=== PATIENT | female | born 1945 | race Caucasian/White ===

== ENCOUNTER 2017-01-12 22:58 | Emergency (ER) | payer MEDICARE ==
--- NOTE | 2017-01-12 23:39 | ED Physician Chart ---
Chief Complaint/HPI - Patient Information Date Seen:: 01/12/17 Time Seen:: 23:10 Chief Complaint:: CONFUSION AND COMBATIVE History of Present Illness:: THIS IS A 71 YO FEMALE WHO WAS SENT FROM THE RETIREMENT FOR EVALUATION AND TREATMENT FOR HER MENTAL ISSUES AND BEING UNCOOPERATIVE. THIS IS A NO CODE WITH DEMENTIA, HTN, THYROID DISEASE, ETOH ABUSE, DEPRESSION. SHE HAS JUST FINISHED TREATMENT OF A URINARY TRACT INFECTION. Allergies:: Allergies Allergy/AdvReac Type Severity Reaction Status Date / Time codeine Allergy Verified 01/12/17 23:21 Vitals:: Vital Signs - 8 hr 01/12/17 23:00 Temp 97.9 F HR 73 RR 18 BP 147/73 O2 Sat % 93 Historian:: EMS, Medical Records Review:: Nurse's Note Reviewed, Old Chart Reviewed, Transfer documents Reviewed Review of Systems - Review of Systems General/Constitutional: No fever, No chills, No weight loss, No weakness, No diaphoresis, No edema, No loss of appetite, Other (THIS PATIENT IS UNABLE TO GIVE A REVIEW OF SYSTEMS.) Skin: No skin lesions, No rash, No bruising Head: No headache, No light-headedness Eyes: No loss of vision, No pain, No diplopia ENT: No earache, No nasal drainage, No sore throat, No tinnitus Neck: No neck pain, No swelling, No thyromegaly, No stiffness, No mass noted Cardio Vascular: No chest pain, No palpitations, No PND, No orthopnea, No edema Pulmonary: No SOB, No cough, No sputum, No wheezing GI: No nausea, No vomiting, No diarrhea, No pain, No melena, No hematochezia, No constipation, No hematemesis G/U: No dysuria, No frequency, No hematuria Musculoskeletal: No bone or joint pain, No back pain, No muscle pain Endocrine: No polyuria, No polydipsia Psychiatric: Prior psych history, No depression, No anxiety, No suicidal ideation, Homicidal ideation Hematopoietic: No bruising, No lymphadenopathy Allergic/Immuno: No urticaria, No angioedema Neurological: No syncope, No focal symptoms, No weakness, No paresthesia, No headache, No seizure, No dizziness, No confusion, No vertigo Past Medical History - Past Medical History Past Medical History: HTN, Dementia Family History: None Social History: Non Smoker, No Alcohol, No Drug Use Surgical History: Cholecystectomy, Hysterectomy Psychiatricy History: Depression, Schizophrenia, Dementia Medication: Reviewed Family Medical History - Family Member Mother History Unknown: Yes Physical Exam - Physical Examination General/Constitutional: Awake, Well-developed, well-nourished, Alert, No distress, GCS 15, Non-toxic appearing, Ambulatory Other Gen/Cons comments:: HOSTILE BEHAVIOR Head: Atraumatic Eyes: Lids, conjuctiva normal, PERRL, EOMI Skin: Nl inspection, No rash, No skin lesions, No ecchymosis, Well hydrated, No lymphadenopathy ENMT: External ears, nose nl, Nasal exam nl, Lips, teeth, gums nl Neck: Nontender, Full ROM w/o pain, No JVD, No nuchal rigidity, No bruit, No mass, No stridor Respiratory: Nl effort/Exclusion, Clear to Auscultation, No Wheeze/Rhonchi/Rales Cardio Vascular: RRR, No murmur, gallop, rubs, NL S1 S2 GI: No tenderness/rebounding/guarding, No organomegaly, No hernia, Normal BS's, Nondistended, No mass/bruits, No McBurney tenderness : No CVA tenderness Extremities: No tenderness or effusion, Full ROM, normal strength in all extremities, No edema, Normal digits & nails Neuro/Psych: Alert/oriented, DTR's symmetric, Normal sensory exam, Normal motor strength, Judgement/insight normal, Mood normal, Normal gait, No focal deficits Misc: normal gait, Normal back, No paraspinal tenderness Labs/Radiology/EKG Results - Lab Results Results: Abnormal Lab Results 01/12/17 01/12/17 01/12/17 23:20 23:20 23:20 WBC 12.4 H RBC 4.38 Hgb 13.4 Hct 39.7 MCV 90.7 MCH 30.6 MCHC Differential 33.7 RDW 12.5 Plt Count 344 MPV 8.8 Band Neutrophils % 2 Neutrophils (Manual) 52 Lymphocytes 38 Monocytes 2 Eosinophils 6 H Platelet Estimate ADEQUATE Sodium 134 L Potassium 3.6 Chloride 103 Carbon Dioxide 27.6 Anion Gap 7.0 BUN 17 Creatinine 0.9 Est GFR ( Amer) > 60.0 Est GFR (Non-Af Amer) > 60.0 BUN/Creatinine Ratio 18.9 Glucose 73 Calcium 10.1 Total Bilirubin 0.4 AST 13 ALT 6 L Alkaline Phosphatase 67 Troponin I 0.01 Total Protein 6.9 Albumin 4.0 Globulin 2.9 Albumin/Globulin Ratio 1.4 TSH Urine Color Urine Clarity Urine pH Ur Specific [place] Urine Protein Urine Glucose (UA) Urine Ketones Urine Blood Urine Nitrate Urine Bilirubin Urine Urobilinogen Ur Leukocyte Esterase 01/12/17 01/13/17 23:20 00:20 WBC RBC Hgb Hct MCV MCH MCHC Differential RDW Plt Count MPV Band Neutrophils % Neutrophils (Manual) Lymphocytes Monocytes Eosinophils Platelet Estimate Sodium Potassium Chloride Carbon Dioxide Anion Gap BUN Creatinine Est GFR ( Amer) Est GFR (Non-Af Amer) BUN/Creatinine Ratio Glucose Calcium Total Bilirubin AST ALT Alkaline Phosphatase Troponin I Total Protein Albumin Globulin Albumin/Globulin Ratio TSH 2.87 Urine Color YELLOW Urine Clarity SLIGHT CLOUDY Urine pH 6.0 Ur Specific [place] 1.010 Urine Protein NEGATIVE Urine Glucose (UA) NEGATIVE Urine Ketones NEGATIVE Urine Blood TRACE Urine Nitrate NEGATIVE Urine Bilirubin NEGATIVE Urine Urobilinogen 0.2 Ur Leukocyte Esterase LARGE H - EKG Interpretations EKG Time:: 23:25 Rate & Rhythm: RATE=81, SINUS [place]: RIGHT Assessment - Assessment General Assessment: URINARY TRACT INFECTION ANXIETY REACTION ED Septic Shock - . Is Septic Shock (SBP<90, OR Lactate>4 mmol\L) present?: No - <6hrs of presentation: Vital Signs: Vital Signs - 8 hr 01/12/17 23:00 Temp 97.9 F HR 73 RR 18 BP 147/73 O2 Sat % 93 Reassessment (Disposition) - Reassessment Reassessment Condition:: Unchanged - Diagnosis Diagnosis:: URINARY TRACT INFECTION ANXIETY REACTION - Aftercare/Follow up Instructions Aftercare/Follow-Up Instructions:: Counseled pt regarding lab results/diagnosis & need follow up, Refer to Discharge Instructions, Counseled pt & family regarding lab results/diagnosis & need follow up - Patient Disposition Discharge/Transfer:: Skilled Nursing Care - SNF ED Discharge Plan - Patient Disposition Admit/Discharge/Transfer: Discharge/Transfered to SNF Condition at Disposition: Unchanged
[2017-01-12 23:42] LABS: HEMATOCRIT 39.7 % (35.0-45.0); HEMOGLOBIN 13.4 gm/dL (11.7-16.1); MEAN CELL VOLUME 90.7 fl (81-100); MEAN CORPUSCULAR HEMOGLOBIN 30.6 pg (27.0-31.0); MEAN CORPUSCULAR HGB CONC 33.7 pg (28.0-36.0); MEAN PLATELET VOLUME 8.8 fl; PLATELET COUNT 344 Th/cmm (150-400); RED BLOOD COUNT 4.38 Mil/cmm (3.80-5.20); RED CELL DISTRIBUTION WIDTH 12.5 % (11.5-20.0)
[2017-01-12 23:46] LABS: WHITE BLOOD COUNT 12.4 Th/cmm (4.8-10.8)
[2017-01-12 23:51] LABS: ALB/GLOB RATIO 1.4 (1.0-1.8); ALKALINE PHOSPHATASE 67 U/L (34-104); BILIRUBIN,TOTAL 0.4 mg/dL (0.3-1.0); BUN - UREA NITROGEN 17 mg/dL (7-25); BUN/CREATININE RATIO 18.9; CALCIUM SERUM 10.1 mg/dL (8.6-10.3); CARBON DIOXIDE 27.6 mEq/L (21.0-31.0); CHLORIDE 103 mEq/L (98-107); CREATININE - SERUM 0.9 mg/dL (0.6-1.2); GLUCOSE 73 mg/dL (70-105); POTASSIUM SERUM 3.6 mEq/L (3.5-5.1); SGOT 13 U/L (13-39); SGPT/ALT 6 U/L (7-52); SODIUM SERUM 134 mEq/L (136-145)
[2017-01-13 00:07] LABS: BAND NEUTROPHILE 2 % (0-10); EOSINOPHIL 6 % (0-5); NEUTROPHILS 52 % (40-80); PLATELET ESTIMATE ADEQUATE (NORMAL); TOTAL CELLS COUNTED 100
[2017-01-13 00:48] LABS: URINE BILIRUBIN NEGATIVE (NEGATIVE); URINE BLOOD TRACE (NEGATIVE); URINE GLUCOSE (UA) NEGATIVE (NEGATIVE); URINE KETONE NEGATIVE (NEGATIVE); URINE PROTEIN NEGATIVE (NEGATIVE); URINE UROBILINOGEN 0.2 E.U./dL (0.2 - 1.0)
[2017-01-13 00:51] LABS: URINE COLOR YELLOW
[2017-01-13 01:06] LABS: URINE BACTERIA FEW /hpf (NONE SEEN); URINE EPITHELIAL CELLS FEW /lpf (FEW); URINE RBC 0-2 /hpf (0-5)
== END 2017-01-13 02:15 ==
LOC: ER 22:58
DX: F41.9 Anxiety disorder, unspecified (principal); N39.0 Urinary tract infection, site not specified; I10 Essential (primary) hypertension; F20.9 Schizophrenia, unspecified; Z88.5 Allergy status to narcotic agent; Z90.49 Acquired absence of other specified parts of digestive tract; Z90.710 Acquired absence of both cervix and uterus
CPT/HCPCS: 99285; 96372; 93005; 84484; 36415; 84443; 86592; 85007; 85027; 81001; 80053; J0696

== ENCOUNTER 2017-03-27 14:12 | Inpatient (IN) | payer MEDICARE, MEDICAID ==
--- NOTE | 2017-03-27 15:06 | ED Physician Chart ---
ED Chief Complaint/HPI - Patient Information Date Seen:: 03/27/17 Time Seen:: 15:01 Chief Complaint:: left hip pain after fall History of Present Illness:: 71 yo female developed left hip pain after an unwitnessed, mechanical lead, ground level fall a day ago. The patient denies any loss of consciousness. The pain became worse when standing and relieved when lying down. The patient has dementia and is a SNF resident. She was brought to ER for further evaluation. Allergies:: Allergies Allergy/AdvReac Type Severity Reaction Status Date / Time codeine Allergy Verified 01/12/17 23:21 Vitals:: Vital Signs - 8 hr 03/27/17 14:16 Temp 97.9 F HR 70 RR 15 BP 127/58 O2 Sat % 93 ED Review of Systems - Review of Systems General/Constitutional: No fever, No chills Skin: No skin lesions Head: No headache Eyes: No loss of vision Neck: No neck pain Cardio Vascular: No chest pain Pulmonary: No SOB GI: No nausea, No vomiting G/U: No dysuria Musculoskeletal: Other (left hip pain) ED Past Medical History - Past Medical History Past Medical History: HTN, Thyroid disorder (Hypothyroidism), Dementia ( Alzheimer's disease) Social History: Smoker, No Alcohol, No Drug Use Surgical History: Cholecystectomy, Hysterectomy Family Medical History - Family Member Mother History Unknown: Yes Ethnicity: Non- Living Status: ED Physical Exam - Physical Examination Head: Atraumatic ENMT: External ears, nose nl Neck: Full ROM w/o pain Respiratory: Clear to Auscultation, No Wheeze/Rhonchi/Rales Cardio Vascular: RRR, No murmur, gallop, rubs, NL S1 S2 GI: No tenderness/rebounding/guarding, Nondistended : No CVA tenderness Other Extremities comments:: Patient was able to move left hip joint without significant pain, there was limited lateral rotation. Other Neuro/Psych comments:: oriented to self and place ED Labs/Radiology/EKG Results - Lab Results Results: UA showed evidence of UTI - Radiology Results Results: Left hip X ray: no fracture or dislocation was noticed. ED Assessment - Assessment General Assessment: 71 yo female has dementia, left hip pain and UTI. Critical Care Time: 45 min Excludes all billable procedures: Yes This condition life threatening/high prob of deterioration: No Assessment/Comments:: The patient will be admitted for management of UTI and further evaluation of the left hip pain. ED Septic Shock - . Is Septic Shock (SBP<90, OR Lactate>4 mmol\L) present?: No - <6hrs of presentation: Vital Signs: Vital Signs - 8 hr 03/27/17 14:16 Temp 97.9 F HR 70 RR 15 BP 127/58 O2 Sat % 93 ED Reassessment (Disposition) - Reassessment Reassessment Condition:: Improved - Patient Disposition Discharge/Transfer:: Acute Care w/in this [facility] Admitted to:: Med/Surg Admitting Medical Physician:: Flako Singh ED Discharge Plan - Patient Disposition Admit/Discharge/Transfer: Acute Care w/in this hosp
[2017-03-27 15:39] LABS: % BASOPHILS 4.1 % (0.0-2.0); % EOSINOPHILS 1.5 % (0.0-5.0); % LYMPHOCYTES 25.9 % (20.0-50.0); % NEUTROPHILS 61.5 % (40.0-80.0); BASOPHILE ABSOLUTE 0.6 Th/cumm (0-0.2); EOSINOPHILE ABSOLUTE 0.2 Th/cmm (0.1-0.4); HEMATOCRIT 41.4 % (41.0-60); HEMOGLOBIN 14.1 gm/dL (12-16); LYMPHOCYTE ABSOLUTE 3.7 Th/cmm (1.5-3.0); MEAN CORPUSCULAR HEMOGLOBIN 30.7 pg (27.0-31.0); MEAN CORPUSCULAR HGB CONC 34.1 pg (28.0-36.0); MEAN PLATELET VOLUME 8.3 fl; NEUTROPHILE ABSOLUTE 8.7 Th/cmm (1.8-8.0); PLATELET COUNT 357 Th/cmm (150-400); RED CELL DISTRIBUTION WIDTH 12.5 % (11.5-20.0)
[2017-03-27 15:47] LABS: WHITE BLOOD COUNT 14.2 Th/cmm (4.8-10.8)
[2017-03-27 15:55] LABS: ALB/GLOB RATIO 1.4 (1.0-1.8); ALBUMIN 3.7 gm/dL (3.7-5.3); ALKALINE PHOSPHATASE 69 U/L (34-104); ANION GAP 8.5 (7.0-16.0); BILIRUBIN,TOTAL 0.3 mg/dL (0.3-1.0); BUN - UREA NITROGEN 22 mg/dL (7-25); CALCIUM SERUM 9.2 mg/dL (8.6-10.3); CARBON DIOXIDE 30.2 mEq/L (21.0-31.0); CHLORIDE 100 mEq/L (98-107); GFR AFRICAN-AMERICAN > 60.0 ml/min (>90); GFR NON AFRICAN-AMERICAN 58.3 ml/min; GLUCOSE 125 mg/dL (70-105); POTASSIUM SERUM 3.7 mEq/L (3.5-5.1); SGOT 14 U/L (13-39); SGPT/ALT 10 U/L (7-52); SODIUM SERUM 135 mEq/L (136-145); TOTAL PROTEIN,SERUM 6.4 gm/dL (6.0-8.3)
[2017-03-27 16:09] LABS: URINE MICROSCOPIC INDICATED? YES; URINE SOURCE RANDOM
[2017-03-27 16:15] LABS: URINE BILIRUBIN NEGATIVE (NEGATIVE); URINE BLOOD TRACE (NEGATIVE); URINE CLARITY CLOUDY (CLEAR); URINE COLOR STRAW; URINE GLUCOSE (UA) NEGATIVE (NEGATIVE); URINE KETONE NEGATIVE (NEGATIVE); URINE LEUKOCYTE ESTERASE MODERATE (NEGATIVE); URINE NITRATE NEGATIVE (NEGATIVE); URINE PROTEIN NEGATIVE (NEGATIVE); URINE UROBILINOGEN 0.2 E.U./dL (0.2 - 1.0)
[2017-03-27 16:28] LABS: URINE BACTERIA MANY /hpf (NONE SEEN); URINE EPITHELIAL CELLS FEW /lpf (FEW); URINE WBC >100 /hpf (0-5)
[2017-03-27] MEDS ORDERED: Morphine Sulfate 2 mg/mL 1mL Syr IVP PRN (17:15)
[2017-03-27] MEDS ORDERED: Morphine Sulfate 2 mg/mL 1mL Syr IM PRN (17:16)
[2017-03-27] MEDS ORDERED: Pneumococcal Vaccine 0.5 mL Vial IM ONE (17:51)
[2017-03-27] MEDS ORDERED: Magnesium Hydroxide (MOM) 30 mL UDC PO PRN (19:38)
[2017-03-27] MEDS ORDERED: Hydrocodone/APAP 5mg/325mg Tab PO PRN (19:38)
[2017-03-27] MEDS ORDERED: Fleet Enema 135 mL RC PRN (19:38)
--- NOTE | 2017-03-27 22:42 | History and Physical ---
History of Present Illness - HPI Chief Complaint: left hip pain HPI: 71 year old female who is a longterm resident admitted for left hip pain secondary to unwitness fall. Per patient pain is worse when standing. Vital Signs: Last Vital Signs Temp 98.4 F 03/27/17 21:00 Pulse 81 03/27/17 21:00 Resp 18 03/27/17 21:00 BP 128/61 03/27/17 21:00 Pulse Ox 96 03/27/17 21:00 Past Medical History Cardiovascular: Report: HTN Pulmonary: Report: No Pertinent Hx CHRONOMETER REPAIRER: Report: No Pertinent Hx GI: Report: No Pertinent Hx Psych: Report: No Pertinent Hx Dermatology: Report: Other (hypothyroid, dementia alzheimer) Family Medical History - Family Member Mother History Unknown: Yes (noncontributory) Ethnicity: Non- Living Status: Social History Smoke: No Alcohol: None Drugs: None Lives: Intermediate - Medications Home Medications: Home Medication Medication Instructions Recorded Type Acetaminophen [Tylenol] 325 mg PO Q4HR PRN 01/12/17 History Bisacodyl [Dulcolax 10 Mg Supp] 10 mg RC DAILY PRN 01/12/17 History Hydrocodone/Acetaminophen [[place] 1 tab PO Q6HR PRN 01/12/17 History 325 mg-5 mg*] Magnesium Hydroxide [Milk of 30 ml PO DAILY PRN 01/12/17 History Magnesia] Na Phos, Dibasic/Na Phos, Mo 1 dose RC PRN PRN 01/12/17 History [Fleet Enema] Trazodone HCl 150 mg PO HS 01/12/17 History Venlafaxine HCl ER [Effexor XR] 225 mg PO DAILY 01/12/17 History - Allergies Allergies/Adverse Reactions: Allergies Allergy/AdvReac Type Severity Reaction Status Date / Time codeine Allergy Verified 01/12/17 23:21 Review of Systems - Review of Systems Constitutional: Report: Weakness Eyes: Report: No Significant ENT: Report: No Significant Respiratory: Report: No Significant Cardiovascular: Report: No Significant Gastrointestinal: Report: No Significant Genitourinary: Report: No Significant Musculoskeletal: Report: Other (left hip pain) Neurological: Report: Weakness Physical Exam - Physical Exam HEENT: Report: Ears Nose Throat within normal limits Neck: Report: Within normal limits Cardiovascular Systems: Report: +s1/s2 noted Respiratory: Report: Breath Sounds are within normal limits Abdomen: Report: Non-tender to palpation Back: Report: Inspection of back is within normal limits. Extremities: Report: Non-tender to palpation. Skin: Report: Color of skin is within normal limits - Lab Results All Lab Results last 24 hours: Laboratory Results - last 24 hr 03/27/17 03/27/17 03/27/17 15:32 15:32 15:32 WBC 14.2 H RBC 4.60 Hgb 14.1 Hct 41.4 MCV 90.0 MCH 30.7 MCHC Differential 34.1 RDW 12.5 Plt Count 357 MPV 8.3 Neutrophils % 61.5 Lymphocytes % 25.9 Monocytes % 7.0 Eosinophils % 1.5 Basophils % 4.1 H Sodium 135 L Potassium 3.7 Chloride 100 Carbon Dioxide 30.2 Anion Gap 8.5 BUN 22 Creatinine 1.0 Est GFR ( Amer) > 60.0 Est GFR (Non-Af Amer) 58.3 BUN/Creatinine Ratio 22.0 Glucose 125 H POC Glucose Whole Bld Lactic Acid 1.42 Calcium 9.2 Total Bilirubin 0.3 AST 14 ALT 10 Alkaline Phosphatase 69 Total Protein 6.4 Albumin 3.7 Globulin 2.7 Albumin/Globulin Ratio 1.4 Urine Source Urine Color Urine Clarity Urine pH Ur Specific [place] Urine Protein Urine Glucose (UA) Urine Ketones Urine Blood Urine Nitrate Urine Bilirubin Urine Urobilinogen Ur Leukocyte Esterase Urine RBC Urine WBC Ur Epithelial Cells Urine Bacteria 03/27/17 03/27/17 16:00 16:57 WBC RBC Hgb Hct MCV MCH MCHC Differential RDW Plt Count MPV Neutrophils % Lymphocytes % Monocytes % Eosinophils % Basophils % Sodium Potassium Chloride Carbon Dioxide Anion Gap BUN Creatinine Est GFR ( Amer) Est GFR (Non-Af Amer) BUN/Creatinine Ratio Glucose POC Glucose 156 H Whole Bld Lactic Acid Calcium Total Bilirubin AST ALT Alkaline Phosphatase Total Protein Albumin Globulin Albumin/Globulin Ratio Urine Source RANDOM Urine Color STRAW Urine Clarity CLOUDY H Urine pH 6.0 Ur Specific [place] 1.020 Urine Protein NEGATIVE Urine Glucose (UA) NEGATIVE Urine Ketones NEGATIVE Urine Blood TRACE Urine Nitrate NEGATIVE Urine Bilirubin NEGATIVE Urine Urobilinogen 0.2 Ur Leukocyte Esterase MODERATE H Urine RBC 2-5 Urine WBC >100 H Ur Epithelial Cells FEW Urine Bacteria MANY - Assessment Assessment: left hip pain htn hypothyroid dementia - Plan Plan: pending ct and hip xray result ortho consult pt eval fall precautions
[2017-03-28 05:24] LABS: % EOSINOPHILS 2.5 % (0.0-5.0); % LYMPHOCYTES 39.4 % (20.0-50.0); % MONOCYTES 9.1 % (2.0-10.0); EOSINOPHILE ABSOLUTE 0.3 Th/cmm (0.1-0.4); HEMOGLOBIN 14.8 gm/dL (12-16); LYMPHOCYTE ABSOLUTE 4.3 Th/cmm (1.5-3.0); MEAN CORPUSCULAR HEMOGLOBIN 30.3 pg (27.0-31.0); MEAN CORPUSCULAR HGB CONC 33.7 pg (28.0-36.0); MEAN PLATELET VOLUME 8.8 fl; NEUTROPHILE ABSOLUTE 5.3 Th/cmm (1.8-8.0); PLATELET COUNT 362 Th/cmm (150-400); RED BLOOD COUNT 4.89 Mil/cmm (3.80-5.20); RED CELL DISTRIBUTION WIDTH 12.7 % (11.5-20.0)
[2017-03-28 05:28] LABS: WHITE BLOOD COUNT 10.9 Th/cmm (4.8-10.8)
[2017-03-28 05:48] LABS: ALB/GLOB RATIO 1.4 (1.0-1.8); ALBUMIN 3.9 gm/dL (3.7-5.3); ALKALINE PHOSPHATASE 71 U/L (34-104); ANION GAP 10.5 (7.0-16.0); BILIRUBIN,TOTAL 0.5 mg/dL (0.3-1.0); BUN - UREA NITROGEN 17 mg/dL (7-25); CALCIUM SERUM 9.5 mg/dL (8.6-10.3); CARBON DIOXIDE 28.4 mEq/L (21.0-31.0); CHLORIDE 105 mEq/L (98-107); CREATININE - SERUM 0.9 mg/dL (0.6-1.2); GFR AFRICAN-AMERICAN > 60.0 ml/min (>90); GFR NON AFRICAN-AMERICAN > 60.0 ml/min; GLUCOSE 88 mg/dL (70-105); POTASSIUM SERUM 3.9 mEq/L (3.5-5.1); SGOT 14 U/L (13-39); SGPT/ALT 8 U/L (7-52); SODIUM SERUM 140 mEq/L (136-145); TOTAL PROTEIN,SERUM 6.7 gm/dL (6.0-8.3)
[2017-03-28] MEDS: cefTRIAXone 1 GM in Sodium Chloride 0.9% 50 ML IV SCH (08:59)
--- NOTE | 2017-03-28 09:52 | Diagnostic Imaging Report ---
Pelvis and left hip 2 views Indication: Left hip pain Comparison: none Findings: Mild degenerative changes of the bilateral hip joints are noted. No evidence of an acute fracture or dislocation. There are calcifications seen adjacent to the left femoral head measuring up to 2.6 cm. The SI joints demonstrate mild degenerative changes. Impression: No evidence of an acute fracture or dislocation. Calcification seen adjacent to the left femoral head which may have been due to old trauma. In the setting of trauma, if clinical symptoms persist and there is continued concern for an occult fracture, follow up exams in 5-7 days is suggested.
--- NOTE | 2017-03-28 10:13 | Diagnostic Imaging Report ---
CT left hip without IV contrast HISTORY: Pain, rule out fracture COMPARISON: Pelvis and left hip x-rays the same day Technique: Axial images were obtained from the lower pelvis to the proximal left femur without IV contrast. Reconstructions were made. Total DLP 200, CTD I 7.2 Findings: Diverticulosis is noted. Left adnexal calcifications are noted. Mild degenerative changes of the left hip joint are noted. No evidence of an acute fracture versus dislocation. There is 3 cm calcification seen along the superolateral left femoral head region. This is probably outside of the joint and may have been sequela of old trauma and subsequent calcifications in this region. No focal soft tissue swelling. IMPRESSION: No evidence of acute fracture or dislocation. 3 cm calcification along the superolateral left femoral head region soft tissues. This appears to be located outside the hip joint. Findings may be sequela of a previous old trauma or prior inflammatory etiology. Please correlate clinically.
--- NOTE | 2017-03-28 18:53 | Progress Notes ---
DATE: 03/28/2017 SUBJECTIVE: The patient was seen in the room, lying in the bed. The patient denies any discomfort or pain at this time. The patient is awake, alert and oriented x 2-3 with episodes of confusion, otherwise the patient appears to be comfortable in no acute distress. OBJECTIVE: VITAL SIGNS: Temperature 98.3, heart rate 78, blood pressure 104/68, respiration of 17, 96% on room air. HEENT: Head is atraumatic and normocephalic. Eyes: Bilateral conjunctivae are clear. Bilateral pupils are equally round and reactive. NECK: Supple. No JVD. CARDIOVASCULAR: S1 and S2, without murmur. PULMONARY: Clear to auscultation. GASTROINTESTINAL: Soft and nontender without guarding. Positive bowel sounds. MUSCULOSKELETAL: No clubbing, no cyanosis noted. ASSESSMENT: 1. Status post ground level fall. 2. Left hip pain. 3. Hypertension. 4. Hypothyroidism. 5. Dementia. 6. Urinary tract infection. PLAN: We will start the patient on Rocephin 1 g IV piggyback every 24 hours. We will follow up with the urine culture result, fall precaution will be given to the patient. Treatment plans were discussed with the patient's nurse. Treatment plans were discussed with Dr. Singh. JOB# [id number]
[2017-03-29 05:46] LABS: % BASOPHILS 0.4 % (0.0-2.0); % EOSINOPHILS 3.1 % (0.0-5.0); % LYMPHOCYTES 44.4 % (20.0-50.0); % MONOCYTES 7.5 % (2.0-10.0); % NEUTROPHILS 44.6 % (40.0-80.0); EOSINOPHILE ABSOLUTE 0.3 Th/cmm (0.1-0.4); HEMATOCRIT 40.3 % (41.0-60); HEMOGLOBIN 13.8 gm/dL (12-16); LYMPHOCYTE ABSOLUTE 4.1 Th/cmm (1.5-3.0); MEAN CORPUSCULAR HEMOGLOBIN 30.8 pg (27.0-31.0); MEAN CORPUSCULAR HGB CONC 34.3 pg (28.0-36.0); MEAN PLATELET VOLUME 8.2 fl; MONOCYTE ABSOLUTE 0.7 Th/cmm (0.3-1.0); NEUTROPHILE ABSOLUTE 4.1 Th/cmm (1.8-8.0); PLATELET COUNT 339 Th/cmm (150-400); RED BLOOD COUNT 4.47 Mil/cmm (3.80-5.20); RED CELL DISTRIBUTION WIDTH 12.5 % (11.5-20.0); WHITE BLOOD COUNT 9.2 Th/cmm (4.8-10.8)
[2017-03-29 06:09] LABS: ALB/GLOB RATIO 1.4 (1.0-1.8); ALBUMIN 3.4 gm/dL (3.7-5.3); ALKALINE PHOSPHATASE 62 U/L (34-104); ANION GAP 8.7 (7.0-16.0); BILIRUBIN,TOTAL 0.3 mg/dL (0.3-1.0); BUN - UREA NITROGEN 16 mg/dL (7-25); CALCIUM SERUM 9.1 mg/dL (8.6-10.3); CARBON DIOXIDE 28.3 mEq/L (21.0-31.0); CHLORIDE 104 mEq/L (98-107); CREATININE - SERUM 0.9 mg/dL (0.6-1.2); GFR AFRICAN-AMERICAN > 60.0 ml/min (>90); GFR NON AFRICAN-AMERICAN > 60.0 ml/min; GLUCOSE 91 mg/dL (70-105); SGOT 12 U/L (13-39); SGPT/ALT 8 U/L (7-52); SODIUM SERUM 137 mEq/L (136-145); TOTAL PROTEIN,SERUM 5.9 gm/dL (6.0-8.3)
[2017-03-29] MEDS: cefTRIAXone 1 GM in Sodium Chloride 0.9% 50 ML IV SCH (09:26)
--- NOTE | 2017-03-29 10:31 | General Progress Note ---
Subjective - Review of Systems Events since last encounter: patient awake alert no no acute distress confused denies discomfort Objective - Results Result Diagrams: 03/29/17 05:30 03/29/17 05:30 Recent Labs: Laboratory Last Values WBC 9.2 Th/cmm (4.8-10.8) 03/29/17 05:30 RBC 4.47 Mil/cmm (3.80-5.20) 03/29/17 05:30 Hgb 13.8 gm/dL (12-16) 03/29/17 05:30 Hct 40.3 % (41.0-60) L 03/29/17 05:30 MCV 90.0 fl (81-100) 03/29/17 05:30 MCH 30.8 pg (27.0-31.0) 03/29/17 05:30 MCHC Differential 34.3 pg (28.0-36.0) 03/29/17 05:30 RDW 12.5 % (11.5-20.0) 03/29/17 05:30 Plt Count 339 Th/cmm (150-400) 03/29/17 05:30 MPV 8.2 fl 03/29/17 05:30 Neutrophils % 44.6 % (40.0-80.0) 03/29/17 05:30 Lymphocytes % 44.4 % (20.0-50.0) 03/29/17 05:30 Monocytes % 7.5 % (2.0-10.0) 03/29/17 05:30 Eosinophils % 3.1 % (0.0-5.0) 03/29/17 05:30 Basophils % 0.4 % (0.0-2.0) 03/29/17 05:30 Sodium 137 mEq/L (136-145) 03/29/17 05:30 Potassium 4.0 mEq/L (3.5-5.1) 03/29/17 05:30 Chloride 104 mEq/L (98-107) 03/29/17 05:30 Carbon Dioxide 28.3 mEq/L (21.0-31.0) 03/29/17 05:30 Anion Gap 8.7 (7.0-16.0) 03/29/17 05:30 BUN 16 mg/dL (7-25) 03/29/17 05:30 Creatinine 0.9 mg/dL (0.6-1.2) 03/29/17 05:30 Est GFR ( Amer) > 60.0 ml/min (>90) 03/29/17 05:30 Est GFR (Non-Af Amer) > 60.0 ml/min 03/29/17 05:30 BUN/Creatinine Ratio 17.8 03/29/17 05:30 Glucose 91 mg/dL (70-105) 03/29/17 05:30 POC Glucose 156 MG/DL (70 - 105) H 03/27/17 16:57 Whole Bld Lactic Acid 1.42 mmol/L (0.60-1.99) 03/27/17 15:32 Calcium 9.1 mg/dL (8.6-10.3) 03/29/17 05:30 Total Bilirubin 0.3 mg/dL (0.3-1.0) 03/29/17 05:30 AST 12 U/L (13-39) L 03/29/17 05:30 ALT 8 U/L (7-52) 03/29/17 05:30 Alkaline Phosphatase 62 U/L (34-104) 03/29/17 05:30 Total Protein 5.9 gm/dL (6.0-8.3) L 03/29/17 05:30 Albumin 3.4 gm/dL (3.7-5.3) L 03/29/17 05:30 Globulin 2.5 gm/dL 03/29/17 05:30 Albumin/Globulin Ratio 1.4 (1.0-1.8) 03/29/17 05:30 Urine Source RANDOM 03/27/17 16:00 Urine Color STRAW 03/27/17 16:00 Urine Clarity CLOUDY (CLEAR) H 03/27/17 16:00 Urine pH 6.0 (4.6 - 8.0) 03/27/17 16:00 Ur Specific [place] 1.020 (1.005-1.030) 03/27/17 16:00 Urine Protein NEGATIVE mg/dL (NEGATIVE) 03/27/17 16:00 Urine Glucose (UA) NEGATIVE mg/dL (NEGATIVE) 03/27/17 16:00 Urine Ketones NEGATIVE mg/dL (NEGATIVE) 03/27/17 16:00 Urine Blood TRACE (NEGATIVE) 03/27/17 16:00 Urine Nitrate NEGATIVE (NEGATIVE) 03/27/17 16:00 Urine Bilirubin NEGATIVE (NEGATIVE) 03/27/17 16:00 Urine Urobilinogen 0.2 E.U./dL (0.2 - 1.0) 03/27/17 16:00 Ur Leukocyte Esterase MODERATE (NEGATIVE) H 03/27/17 16:00 Urine RBC 2-5 /hpf (0-5) 03/27/17 16:00 Urine WBC >100 /hpf (0-5) H 03/27/17 16:00 Ur Epithelial Cells FEW /lpf (FEW) 03/27/17 16:00 Urine Bacteria MANY /hpf (NONE SEEN) 03/27/17 16:00 - Physical Exam Vitals and I&O: Vital Signs Temp 98.3 F 03/29/17 04:00 Pulse 74 03/29/17 04:00 Resp 18 03/29/17 04:00 BP 137/75 03/29/17 04:00 Pulse Ox 94 03/29/17 04:00 Intake & Output 03/28/17 03/29/17 03/29/17 18:59 06:59 18:59 Intake Total 50 100 Balance 50 100 Weight (lbs) 56.331 kg Intake: Intake, IV Amount 50 cefTRIAXone 1 gm In 50 Sodium Chloride 0.9% 50 ml @ 100 mls/hr IV Q24HR [facility] Rx#:[id number] Oral 100 Other: # Voids 2 Active Medications: Current Medications Acetaminophen (Tylenol) 325 mg PO Q4HR PRN PRN Reason: Pain or Fever >101 Stop: 05/26/17 19:37 Acetaminophen/Hydrocodone Bitart ([place] 5mg/325mg) 1 tab PO Q6HR PRN PRN Reason: Pain (Moderate) Stop: 05/26/17 19:37 Bisacodyl (Dulcolax 10 Mg Supp) 10 mg RC DAILY PRN PRN Reason: Constipation Stop: 05/26/17 19:37 Ceftriaxone Sodium 1 gm/ (Sodium Chloride) 50 mls @ 100 mls/hr IV Q24HR [facility] Stop: 05/27/17 08:59 Last Admin: 03/29/17 09:26 Dose: 100 mls/hr Magnesium Hydroxide (Milk Of Magnesia) 30 ml PO DAILY PRN PRN Reason: Constipation Stop: 12/19/17 19:37 Morphine Sulfate (Morphine) 1 mg IVP Q3HR PRN PRN Reason: moderate pain Stop: 05/26/17 17:14 Morphine Sulfate (Morphine) 2 mg IM Q3HR PRN PRN Reason: Severe Pain Stop: 05/26/17 17:15 Sodium Phosphate (Fleet Enema) 135 ml RC PRN PRN PRN Reason: Constipation Stop: 05/26/17 19:37 Trazodone HCl (Desyrel) 150 mg PO HS [facility] Stop: 05/26/17 20:59 Last Admin: 03/28/17 22:47 Dose: 150 mg Venlafaxine HCl (Effexor Xr) 225 mg PO DAILY [facility] PRN Reason: Protocol Stop: 05/27/17 08:59 Last Admin: 03/29/17 09:26 Dose: 225 mg General: No acute distress HEENT: Atraumatic, PERRLA Neck: Supple Cardiovascular: Regular rate Lungs: Clear to auscultation Assessment/Plan - Problem List Patient Problems: All Active Problems Dementia (Acute) F03.90 HTN (hypertension) (Acute) I10 Hypothyroid (Acute) E03.9 Left hip pain (Acute) M25.552 UTI (urinary tract infection) (Acute) s/p gound level fall (Acute) - Assessment Assessment: left hip pain htn hypothyroid dementia - Plan Plan: pending ct and hip xray result ortho consult pt eval fall precautions
[2017-03-29] MEDS ORDERED: Probiotic Screen MC PRN (11:39)
[2017-03-30] MEDS: cefTRIAXone 1 GM in Sodium Chloride 0.9% 50 ML IV SCH (08:44)
[2017-03-30] MEDS ORDERED: Lactobacillus Rhamnosus 10 Billion CFU Capsule PO SCH (09:00)
--- NOTE | 2017-04-04 22:16 | Discharge Summary ---
DATE OF DISCHARGE: 03/30/2017 HOSPITAL COURSE: This is a 71-year-old female who was admitted through the Emergency Room from a shelter facility due to episode of ground level fall. From the Emergency Room, series of tests were done and the patient was found to have urinary tract infection, hence the patient was admitted to Med/Surg unit and received some series of IV antibiotics. Once stabilized, the patient was discharged back to [facility] to continue IV antibiotics. Medication reconciliation was done accordingly. The patient will be followed by Dr. Singh. JOB# [id number]
--- NOTE | 2017-04-04 22:16 | Discharge Summary ---
DATE OF DISCHARGE: 03/30/2017 HOSPITAL COURSE: This is a 71-year-old female who was admitted through the Emergency Room from a long term facility due to episode of ground level fall. From the Emergency Room, series of tests were done and the patient was found to have urinary tract infection, hence the patient was admitted to Med/Surg unit and received some series of IV antibiotics. Once stabilized, the patient was discharged back to [facility] to continue IV antibiotics. Medication reconciliation was done accordingly. The patient will be followed by Dr. Singh. JOB# [id number]
--- NOTE | 2017-04-04 22:16 | Discharge Summary ---
DATE OF DISCHARGE: 03/30/2017 HOSPITAL COURSE: This is a 71-year-old female who was admitted through the Emergency Room from a senior living facility due to episode of ground level fall. From the Emergency Room, series of tests were done and the patient was found to have urinary tract infection, hence the patient was admitted to Med/Surg unit and received some series of IV antibiotics. Once stabilized, the patient was discharged back to [facility] to continue IV antibiotics. Medication reconciliation was done accordingly. The patient will be followed by Dr. Singh. JOB# [id number]
== END 2017-03-30 15:40 | disposition home or self-care (01) | DRG 871 ==
LOC: ER 14:12 → MSI 15:15
PROVIDERS: ADMIT Internal Medicine; ATTEND Internal Medicine
DX: A41.9 Sepsis, unspecified organism (principal); G92 Toxic encephalopathy; N39.0 Urinary tract infection, site not specified; G30.9 Alzheimer's disease, unspecified; F02.80 Dementia in other diseases classified elsewhere, unspecified severity, without behavioral disturbance, psychotic disturbance, mood disturbance, and anxiety; I10 Essential (primary) hypertension; M25.552 Pain in left hip; E03.9 Hypothyroidism, unspecified; F17.210 Nicotine dependence, cigarettes, uncomplicated; W18.30XA Fall on same level, unspecified, initial encounter; Y93.89 Activity, other specified; Y92.89 Other specified places as the place of occurrence of the external cause; Y99.8 Other external cause status; Z88.5 Allergy status to narcotic agent; Z90.49 Acquired absence of other specified parts of digestive tract; Z90.710 Acquired absence of both cervix and uterus; Z79.899 Other long term (current) drug therapy
CPT/HCPCS: 36415-UA; 73501; 73700-TC-LT; 80053-TC; 81001-TC; 82948-90; 83605; 85025-TC; 87086-90; 97530; J0696; X3904; Z7502; Z7610

== ENCOUNTER 2017-09-11 19:40 | Inpatient (IN) | payer MEDICARE, MEDICAID ==
[2017-09-11 21:09] LABS: % MONOCYTES 6.6 % (2.0-10.0); EOSINOPHILE ABSOLUTE 0.2 Th/cmm (0.1-0.4); MONOCYTE ABSOLUTE 0.8 Th/cmm (0.3-1.0); NEUTROPHILE ABSOLUTE 6.2 Th/cmm (1.8-8.0)
[2017-09-11 21:12] LABS: % EOSINOPHILS 1.7 % (0.0-5.0); % LYMPHOCYTES 37.3 % (20.0-50.0); % NEUTROPHILS 54.4 % (40.0-80.0); HEMATOCRIT 45.9 % (41.0-60); HEMOGLOBIN 15.3 gm/dL (12-16); LYMPHOCYTE ABSOLUTE 4.3 Th/cmm (1.5-3.0); MEAN CELL VOLUME 89.3 fl (81-100); MEAN CORPUSCULAR HEMOGLOBIN 29.7 pg (27.0-31.0); MEAN CORPUSCULAR HGB CONC 33.2 pg (28.0-36.0); MEAN PLATELET VOLUME 7.8 fl; PLATELET COUNT 421 Th/cmm (150-400); RED BLOOD COUNT 5.14 Mil/cmm (3.80-5.20); RED CELL DISTRIBUTION WIDTH 12.6 % (11.5-20.0); WHITE BLOOD COUNT 11.5 Th/cmm (4.8-10.8)
[2017-09-11 21:28] LABS: ALB/GLOB RATIO 1.4 (1.0-1.8); ALBUMIN 4.4 gm/dL (3.7-5.3); ALKALINE PHOSPHATASE 81 U/L (34-104); ANION GAP 16.1 (7.0-16.0); BILIRUBIN,TOTAL 0.3 mg/dL (0.3-1.0); BUN - UREA NITROGEN 15 mg/dL (7-25); CALCIUM SERUM 10.1 mg/dL (8.6-10.3); CARBON DIOXIDE 26.1 mEq/L (21.0-31.0); CHLORIDE 98 mEq/L (98-107); GLUCOSE 95 mg/dL (70-105); POTASSIUM SERUM 4.2 mEq/L (3.5-5.1); SGOT 15 U/L (13-39); SGPT/ALT 8 U/L (7-52); SODIUM SERUM 136 mEq/L (136-145); TOTAL PROTEIN,SERUM 7.5 gm/dL (6.0-8.3)
[2017-09-11 21:29] LABS: ALB/GLOB RATIO 1.6 (1.0-1.8); ALBUMIN 4.4 gm/dL (3.7-5.3); BILIRUBIN,TOTAL 0.3 mg/dL (0.3-1.0); TOTAL PROTEIN,SERUM 7.2 gm/dL (6.0-8.3)
[2017-09-11 21:32] LABS: BILIRUBIN,DIRECT 0.06 mg/dL (0.0-0.2)
[2017-09-11] MEDS ORDERED: Piperacillin Sodium/Tazobact 3.375 gm Vial IV ONE (22:11)
--- NOTE | 2017-09-11 23:18 | Transfer Summary ---
DATE OF TRANSFER: The patient was sent here for medical evaluation. If there is nothing acutely seen, then the patient can be discharged to the psychiatric floor. The patient has a chest x-ray done, which has a midline CABG scar and patient has a surgical clip of most likely myocardial revascularization surgery that is CABG has been done on her. The patient says she had a hysterectomy done and she had a cholecystectomy done in the past. The patient has diagnoses of hypertension, hypothyroidism, dementia, depression and the patient takes some pain medications and other Davis medication for pain and Tylenol for pain. The patient has been monitored. The patient gets some trazodone 100 mg at bedtime, Effexor XR 150 mg by mouth daily for depression. The patient's urine culture was sent I believe. Psychiatrist will see the patient tomorrow. Lab workups are all normal. The patient other than CABG which is old, nothing new history, but I think the patient should be on aspirin 81 mg a day and a lipid level should be done in the morning fasting, LDL is 39, cholesterol is 105, triglycerides 51 and HDL is 51. The patient will be admitted. The patient had WBC of 11.5. Sodium 136, potassium 4.2, chloride 98, CO2 26.1, anion gap is 16.1, BUN 15, creatinine 1, magnesium is 2 and bilirubin, etc., are normal. Troponin is normal. BNP is normal. Albumin to globulin ratio is 1.2. TSH is 0.02, low; that is very low suggesting that probably the patient may be having hyperthyroidism and free T4 level may be helpful ____. One dose of antibiotic has been given. We do not have any urine results available back. Will call Dr. Singh and most like the patient will be sent to the psychiatric art. JOB# [id number]
--- NOTE | 2017-09-12 00:23 | Transfer Summary ---
DATE OF TRANSFER: 09/11/2017 HISTORY AND EMERGENCY ROOM EVALUATION AND TREATMENT HISTORY OF PRESENT ILLNESS: A 72-year-old patient. The patient was sent here for psych eval. Then, the patient will be admitted to the psychiatric unit if there is no medical condition detected that needs acute care. The patient says she is angry she does not want to be admitted. The triage evaluation was done by Jose G. PHYSICAL EXAMINATION: VITAL SIGNS: Temperature 97, pulse of 80, respirations 18, blood pressure 124/60, and oxygen saturation 97. Height of 5 feet 5 inches, weight 130 pounds. HISTORY OF PRESENT ILLNESS: The patient does not know why she is here. She is allergic to codeine. A 12-point review of system is essentially benign and negative apart no history of any chest pain, myocardial infarction, rheumatic fever, or valvular heart disease. The patient's conjunctivae are found to be clear. Pupils are equal, reacting to light. Carotids are normal. No edema, no cyanosis, no petechia, and no ecchymosis. Blood pressure is normal. The patient looks comfortable. She has anger in her. The patient is on lot of medications. The patient is sent here by Dr. Jean Singh; phone number [phone] and exchange number [phone]. PHYSICAL EXAMINATION: GENERAL: The patient's general examination otherwise is benign and negative. She is adequately built, poorly nourished. A 12-point review of system is negative. CHEST: Clear. No rales, bronchial breathing. No evidence of any COPD. HEART: Reveals no surgical scars, no pacemakers. Heart sounds are normal. S1, S2 are normal. PMI is located in the fifth intercostal space in the midclavicular line. ABDOMEN: Soft, benign, and negative. CENTRAL NERVOUS SYSTEM: Is within normal limits. CANCER BROWN: The patient has no significant cancer disease. PSYCHIATRIC BROWN: The patient has a psychiatric history, depression history, severe irritability history every shift. She is on Effexor XR for that condition. The patient may apply bed alarm when up in the chair to alert staff and attempting to get assigned out of the bed. The patient needs psychologist consult, psychiatric consult. Medication needs to be crushed and given to the patient. The patient's lab workup was recently done on 09/03/2017. Electrolytes are normal. BUN is 12, creatinine 0.9, protein is 5.9, and albumin is 3.7. The patient's CVA tenderness is negative. FINAL DIAGNOSES: 1. Aggressive behavior, hitting others. 2. Psychosis. 3. Nosocomial came from [facility]. Insurance was verified and the patient will be admitted under Dr. Hammer as psychiatrist and medical doctor, Dr. Singh. We have sent the lab for lab results. Once we get the labs, we will admit the patient. The labs are normal and nothing seriously abnormal is detected. JOB# [id number]
[2017-09-12 01:01] VITALS: BP 165/88
[2017-09-12] MEDS: Multivitamin Tab PO SCH (08:22)
--- NOTE | 2017-09-12 09:53 | Diagnostic Imaging Report ---
Exam: Frontal chest x-ray HISTORY: Pneumonia. Findings: Frontal examination of the chest was reviewed, no prior studies available for comparison. The study demonstrates COPD changes. No acute pulmonic infiltrates or effusions are noted. Bony thorax intact. Mediastinal structures midline. IMPRESSION: No acute disease.
--- NOTE | 2017-09-12 10:20 | History & Physical ---
ADMIT DATE: 09/12/2017 CHIEF COMPLAINT: Agitation. HISTORY OF PRESENT ILLNESS: This is a 72-year-old female who was transferred to [facility] ER due to evaluation of aggressive behavior. REVIEW OF SYSTEMS: GENERAL: This is a 72-year-old female that appears as stated. No weight loss, no fever. HEAD: No dizziness. No headache. EYES: No eye pain, no blurring of vision. NECK: No neck pain, no nuchal rigidity. CHEST: No chest pain. No palpitation. PULMONARY: No coughing. No shortness of breath. GASTROINTESTINAL: No abdominal pain. No diarrhea. No constipation. MUSCULOSKELETAL: No joint pain. No muscle pain. SOCIAL HISTORY: The patient lives in a intermediate facility prior to hospitalization. PAST MEDICAL HISTORY: Includes hypertension and hypothyroidism. PAST SURGICAL HISTORY: Coronary artery bypass grafting. FAMILY HISTORY: Unremarkable. PSYCHIATRIC HISTORY: Includes dementia and depression. PHYSICAL EXAMINATION: VITAL SIGNS: Temperature 97.2, heart rate of 90, blood pressure 152/92, respirations of 20, and 96% on room air. GENERAL: This is a 72-year-old female, in no acute distress. HEENT: Head is atraumatic, normocephalic. Eyes: Bilateral conjunctivae are clear. Bilateral pupils are equally round and reactive. NECK: Supple. No JVD. CARDIOVASCULAR: S1 and S2, without murmur. PULMONARY: Clear to auscultation. GASTROINTESTINAL: Soft and nontender without guarding. Positive bowel sounds. MUSCULOSKELETAL: No clubbing. No cyanosis noted. ASSESSMENT: 1. Dementia. 2. Depression. 3. Osteoarthritis. 4. Hypothyroidism. 5. Hypertension. 6. Coronary artery disease. PLAN: We will admit the patient to senior mental health unit. We will follow up with a psychiatrist to monitor the patient's condition and behavior. Also, can do medication reconciliation accordingly. Treatment plans were discussed with the patient's nurse. Treatment plans were discussed with Dr. Singh. JOB# [id number]
--- NOTE | 2017-09-13 08:04 | Psychosocial Evaluation ---
DATE OF SERVICE: 09/12/2017 The patient was seen and evaluated. The patient's chart was reviewed. Initial psychiatric evaluation. Covering for Dr. Hammer. CHIEF COMPLAINT: Agitation. JUSTIFICATION FOR ADMISSION: Agitation. HISTORY OF PRESENT ILLNESS: A 72-year-old female transferred to [facility] in the ER for evaluation for becoming more aggressive behavior. Today on [id number] evaluation, the patient perseverates that she has a bus waiting for her outside and that she needs to leave. Other than that, the patient is an extremely poor historian. Most of the information gathered from the medical records. PAST PSYCHIATRIC HISTORY: History of dementia. PAST MEDICAL HISTORY: History of osteoarthritis, hypothyroidism, hypertension, and CAD. ALLERGIES TO MEDICATIONS: NKDA. PAST SURGICAL HISTORY: History of coronary artery bypass. FAMILY/PSYCHIATRIC: Unremarkable. LEGAL HISTORY: None. SOCIAL HISTORY: Living in a mcc prior to the transfer here. HOME MEDICATIONS: Include trazodone 100 mg at night time, Effexor 150 daily, and also Ambien. LABS: Reviewed. MENTAL STATUS EXAMINATION: She is in her room, gets up, paces, confused. Reports that she has to leave on a bus today needing a lot of redirection, mildly anxious, disorganized thought process, neurocognitive impaired. She does not know exactly where she is. She is unable to elaborate date and time. [id number] insight, judgment, and impulse control. No auditory or visual hallucinations. PRIMARY DIAGNOSIS: Major depressive disorder. SECONDARY DIAGNOSES: Neurocognitive impairment, dementia. Medical diagnosis as noted above. ASSESSMENT AND PLAN: The patient is a 72-year-old female, severely cognitively impaired with history of depression. We will continue with the current medication regimen. She was ____ we obtain more collateral baseline information. We will also augment with Aricept to target the patient's declining cognition. Estimated stay between 5 to 10 days. DISCHARGE CRITERIA: Demonstrates euthymic mood. No suicidal or homicidal ideation. Good psychiatric followup. Good [id number] interaction. [facility]# [id number]
--- NOTE | 2017-09-13 09:39 | Progress Notes ---
DATE: The patient was seen and evaluated. The patient's chart reviewed. Overnight, the patient continues to perseverate reporting that she is being summoned to go outside because her mother is waiting for her. Today on [id number] evaluation, the patient continues to be perseverating, badly wanting to go outside, waiting for her at bust stop, because her mother is waiting for her, needs a lot of redirection. ASSESSMENT AND PLAN: The patient is a 72-year-old female, neurocognitively impaired. We will continue with the recent addition of the Depakote and Aricept to continue to target the patient's labile mood associated with the severe cognitive impairment and continue with the antidepressant as she continues to be severely depressed. [facility]# [id number]
--- NOTE | 2017-09-13 11:34 | General Progress Note ---
Subjective - Review of Systems Events since last encounter: patient withdrawn confused depressed Objective - Results Result Diagrams: 09/11/17 21:00 09/11/17 21:00 Recent Labs: Laboratory Last Values WBC 11.5 Th/cmm (4.8-10.8) H 09/11/17 21:00 RBC 5.14 Mil/cmm (3.80-5.20) 09/11/17 21:00 Hgb 15.3 gm/dL (12-16) 09/11/17 21:00 Hct 45.9 % (41.0-60) 09/11/17 21:00 MCV 89.3 fl (81-100) 09/11/17 21:00 MCH 29.7 pg (27.0-31.0) 09/11/17 21:00 MCHC Differential 33.2 pg (28.0-36.0) 09/11/17 21:00 RDW 12.6 % (11.5-20.0) 09/11/17 21:00 Plt Count 421 Th/cmm (150-400) H 09/11/17 21:00 MPV 7.8 fl 09/11/17 21:00 Neutrophils % 54.4 % (40.0-80.0) 09/11/17 21:00 Lymphocytes % 37.3 % (20.0-50.0) 09/11/17 21:00 Monocytes % 6.6 % (2.0-10.0) 09/11/17 21:00 Eosinophils % 1.7 % (0.0-5.0) 09/11/17 21:00 Basophils % 0.0 % (0.0-2.0) 09/11/17 21:00 Sodium 136 mEq/L (136-145) 09/11/17 21:00 Potassium 4.2 mEq/L (3.5-5.1) 09/11/17 21:00 Chloride 98 mEq/L (98-107) 09/11/17 21:00 Carbon Dioxide 26.1 mEq/L (21.0-31.0) 09/11/17 21:00 Anion Gap 16.1 (7.0-16.0) H 09/11/17 21:00 BUN 15 mg/dL (7-25) 09/11/17 21:00 Creatinine 1.0 mg/dL (0.6-1.2) 09/11/17 21:00 Est GFR ( Amer) TNP 09/11/17 21:00 Est GFR (Non-Af Amer) TNP 09/11/17 21:00 BUN/Creatinine Ratio 15.0 09/11/17 21:00 Glucose 95 mg/dL (70-105) 09/11/17 21:00 Calcium 10.1 mg/dL (8.6-10.3) 09/11/17 21:00 Magnesium 2.0 mg/dL (1.9-2.7) 09/11/17 21:00 Total Bilirubin 0.3 mg/dL (0.3-1.0) 09/11/17 21:00 Direct Bilirubin 0.06 mg/dL (0.0-0.2) 09/11/17 21:00 AST 15 U/L (13-39) 09/11/17 21:00 ALT 8 U/L (7-52) 09/11/17 21:00 Alkaline Phosphatase 81 U/L (34-104) 09/11/17 21:00 Troponin I < 0.01 ng/mL (0.01-0.05) L 09/11/17 21:00 B-Natriuretic Peptide < 5.0 pg/mL (5.0-100.0) L 09/11/17 21:00 Total Protein 7.5 gm/dL (6.0-8.3) 09/11/17 21:00 Albumin 4.4 gm/dL (3.7-5.3) 09/11/17 21:00 Globulin 3.1 gm/dL 09/11/17 21:00 Albumin/Globulin Ratio 1.4 (1.0-1.8) 09/11/17 21:00 Free T4 1.12 ng/dL (0.82-1.77) 09/11/17 21:00 TSH 9.04 uIU/ml (0.34-5.60) H 09/11/17 21:00 - Physical Exam Vitals and I&O: Vital Signs Temp 97.7 F 09/13/17 04:48 Pulse 70 09/13/17 04:48 Resp 19 09/13/17 09:35 BP 144/93 09/13/17 04:48 Pulse Ox 97 09/13/17 04:48 Intake & Output 09/12/17 09/13/1718 18:59 06:59 18:59 Intake Total 240 480 Balance 240 480 Intake: Oral 240 480 Other: # Voids 4 2 # Bowel Movements 0 Active Medications: Current Medications Acetaminophen (Tylenol) 650 mg PO Q4HR PRN PRN Reason: Mild Pain / Temp above 100 Stop: 11/11/17 01:32 Last Admin: 09/12/17 13:53 Dose: 650 mg Divalproex Sodium (Depakote Dr) 125 mg PO BID KALEY PRN Reason: Protocol Stop: 11/11/17 16:59 Last Admin: 09/12/17 17:27 Dose: Not Given Donepezil HCl (Aricept) 5 mg PO DAILY KALEY Stop: 11/11/17 16:59 Last Admin: 09/12/17 17:51 Dose: 5 mg Lorazepam (Ativan) 0.5 mg PO Q4HR PRN; Protocol PRN Reason: Anxiety Stop: 10/12/17 01:32 Last Admin: 09/13/17 00:26 Dose: 0.5 mg Multivitamins/Vitamin C (Theragran) 1 tab PO DAILY KALEY Stop: 11/11/17 08:59 Last Admin: 09/12/17 08:22 Dose: 1 tab Trazodone HCl (Desyrel) 100 mg PO HS KALEY PRN Reason: Protocol Stop: 11/11/17 20:59 Last Admin: 09/12/17 21:08 Dose: 100 mg Venlafaxine HCl (Effexor Xr) 150 mg PO DAILY KALEY PRN Reason: Protocol Stop: 11/11/17 08:59 Last Admin: 09/12/17 08:22 Dose: 150 mg Zolpidem Tartrate (Ambien) 5 mg PO HS PRN PRN Reason: Insomnia Stop: 11/11/17 01:32 Last Admin: 09/12/17 21:09 Dose: 5 mg
[2017-09-13] MEDS: Multivitamin Tab PO SCH (15:08)
[2017-09-14] MEDS: Multivitamin Tab PO SCH (08:33)
--- NOTE | 2017-09-14 15:18 | General Progress Note ---
Subjective - Review of Systems Events since last encounter: no change still depressed denies pain Objective - Results Result Diagrams: 09/11/17 21:00 09/11/17 21:00 Recent Labs: Laboratory Last Values WBC 11.5 Th/cmm (4.8-10.8) H 09/11/17 21:00 RBC 5.14 Mil/cmm (3.80-5.20) 09/11/17 21:00 Hgb 15.3 gm/dL (12-16) 09/11/17 21:00 Hct 45.9 % (41.0-60) 09/11/17 21:00 MCV 89.3 fl (81-100) 09/11/17 21:00 MCH 29.7 pg (27.0-31.0) 09/11/17 21:00 MCHC Differential 33.2 pg (28.0-36.0) 09/11/17 21:00 RDW 12.6 % (11.5-20.0) 09/11/17 21:00 Plt Count 421 Th/cmm (150-400) H 09/11/17 21:00 MPV 7.8 fl 09/11/17 21:00 Neutrophils % 54.4 % (40.0-80.0) 09/11/17 21:00 Lymphocytes % 37.3 % (20.0-50.0) 09/11/17 21:00 Monocytes % 6.6 % (2.0-10.0) 09/11/17 21:00 Eosinophils % 1.7 % (0.0-5.0) 09/11/17 21:00 Basophils % 0.0 % (0.0-2.0) 09/11/17 21:00 Sodium 136 mEq/L (136-145) 09/11/17 21:00 Potassium 4.2 mEq/L (3.5-5.1) 09/11/17 21:00 Chloride 98 mEq/L (98-107) 09/11/17 21:00 Carbon Dioxide 26.1 mEq/L (21.0-31.0) 09/11/17 21:00 Anion Gap 16.1 (7.0-16.0) H 09/11/17 21:00 BUN 15 mg/dL (7-25) 09/11/17 21:00 Creatinine 1.0 mg/dL (0.6-1.2) 09/11/17 21:00 Est GFR ( Amer) TNP 09/11/17 21:00 Est GFR (Non-Af Amer) TNP 09/11/17 21:00 BUN/Creatinine Ratio 15.0 09/11/17 21:00 Glucose 95 mg/dL (70-105) 09/11/17 21:00 Calcium 10.1 mg/dL (8.6-10.3) 09/11/17 21:00 Magnesium 2.0 mg/dL (1.9-2.7) 09/11/17 21:00 Total Bilirubin 0.3 mg/dL (0.3-1.0) 09/11/17 21:00 Direct Bilirubin 0.06 mg/dL (0.0-0.2) 09/11/17 21:00 AST 15 U/L (13-39) 09/11/17 21:00 ALT 8 U/L (7-52) 09/11/17 21:00 Alkaline Phosphatase 81 U/L (34-104) 09/11/17 21:00 Troponin I < 0.01 ng/mL (0.01-0.05) L 09/11/17 21:00 B-Natriuretic Peptide < 5.0 pg/mL (5.0-100.0) L 09/11/17 21:00 Total Protein 7.5 gm/dL (6.0-8.3) 09/11/17 21:00 Albumin 4.4 gm/dL (3.7-5.3) 09/11/17 21:00 Globulin 3.1 gm/dL 09/11/17 21:00 Albumin/Globulin Ratio 1.4 (1.0-1.8) 09/11/17 21:00 Free T4 1.12 ng/dL (0.82-1.77) 09/11/17 21:00 TSH 9.04 uIU/ml (0.34-5.60) H 09/11/17 21:00 - Physical Exam Vitals and I&O: Vital Signs Temp 97.9 F 09/14/17 05:06 Pulse 71 09/14/17 05:06 Resp 19 09/14/17 08:00 BP 106/71 09/14/17 05:06 Pulse Ox 92 09/14/17 05:06 Intake & Output 09/13/17 09/14/17 09/14/17 18:59 06:59 18:59 Intake Total 420 480 Balance 420 480 Intake: Oral 420 480 Other: # Voids 2 2 Active Medications: Current Medications Acetaminophen (Tylenol) 650 mg PO Q4HR PRN PRN Reason: Mild Pain / Temp above 100 Stop: 11/11/17 01:32 Last Admin: 09/12/17 13:53 Dose: 650 mg Divalproex Sodium (Depakote Dr) 125 mg PO BID KALEY PRN Reason: Protocol Stop: 11/11/17 16:59 Last Admin: 09/14/17 08:34 Dose: 125 mg Donepezil HCl (Aricept) 5 mg PO DAILY KALEY Stop: 11/11/17 16:59 Last Admin: 09/14/17 08:34 Dose: 5 mg Lorazepam (Ativan) 0.5 mg PO Q4HR PRN; Protocol PRN Reason: Anxiety Stop: 10/12/17 01:32 Last Admin: 09/13/17 15:08 Dose: 0.5 mg Multivitamins/Vitamin C (Theragran) 1 tab PO DAILY KALEY Stop: 11/11/17 08:59 Last Admin: 09/14/17 08:33 Dose: 1 tab Trazodone HCl (Desyrel) 100 mg PO HS KALEY PRN Reason: Protocol Stop: 11/11/17 20:59 Last Admin: 09/13/17 21:56 Dose: 100 mg Venlafaxine HCl (Effexor Xr) 150 mg PO DAILY KALEY PRN Reason: Protocol Stop: 11/11/17 08:59 Last Admin: 09/14/17 08:34 Dose: 150 mg Zolpidem Tartrate (Ambien) 5 mg PO HS PRN PRN Reason: Insomnia Stop: 11/11/17 01:32 Last Admin: 09/13/17 22:19 Dose: 5 mg
--- NOTE | 2017-09-14 19:45 | Progress Notes ---
DATE: 09/14/2017 SUBJECTIVE: A 72-year-old female transferred to [facility], for aggressive behaviors, agitated behaviors, perseverative behaviors, and not a good historian. AO to name only, not to situation, not to place. She states it is 2009, not quite sure about the month. She has no idea where she lives. The patient with a known history of dementia, occlusive, isolative. MEDICATIONS: Reviewed. ASSESSMENT: The patient is confused, disoriented, talking about her mom. The patient is 72 years old. She is currently on Aricept and Effexor. PLAN: We will continue to monitor. We will try to gather more information. Per most recent psychologist social' note, the patient was living at [facility]. JOB# [id number]
[2017-09-15] MEDS: Multivitamin Tab PO SCH (11:10)
--- NOTE | 2017-09-15 13:24 | Internal Medicine Prog Note ---
Internal Medicine Subjective - Subjective Service Date: 09/15/17 Patient seen and examined:: with staff Patient is:: awake Per staff patient has:: tolerating meds Internal Medicine Objective - Results Result Diagrams: 09/11/17 21:00 09/11/17 21:00 Recent Labs: Laboratory Last Values WBC 11.5 Th/cmm (4.8-10.8) H 09/11/17 21:00 RBC 5.14 Mil/cmm (3.80-5.20) 09/11/17 21:00 Hgb 15.3 gm/dL (12-16) 09/11/17 21:00 Hct 45.9 % (41.0-60) 09/11/17 21:00 MCV 89.3 fl (81-100) 09/11/17 21:00 MCH 29.7 pg (27.0-31.0) 09/11/17 21:00 MCHC Differential 33.2 pg (28.0-36.0) 09/11/17 21:00 RDW 12.6 % (11.5-20.0) 09/11/17 21:00 Plt Count 421 Th/cmm (150-400) H 09/11/17 21:00 MPV 7.8 fl 09/11/17 21:00 Neutrophils % 54.4 % (40.0-80.0) 09/11/17 21:00 Lymphocytes % 37.3 % (20.0-50.0) 09/11/17 21:00 Monocytes % 6.6 % (2.0-10.0) 09/11/17 21:00 Eosinophils % 1.7 % (0.0-5.0) 09/11/17 21:00 Basophils % 0.0 % (0.0-2.0) 09/11/17 21:00 Sodium 136 mEq/L (136-145) 09/11/17 21:00 Potassium 4.2 mEq/L (3.5-5.1) 09/11/17 21:00 Chloride 98 mEq/L (98-107) 09/11/17 21:00 Carbon Dioxide 26.1 mEq/L (21.0-31.0) 09/11/17 21:00 Anion Gap 16.1 (7.0-16.0) H 09/11/17 21:00 BUN 15 mg/dL (7-25) 09/11/17 21:00 Creatinine 1.0 mg/dL (0.6-1.2) 09/11/17 21:00 Est GFR ( Amer) TNP 09/11/17 21:00 Est GFR (Non-Af Amer) TNP 09/11/17 21:00 BUN/Creatinine Ratio 15.0 09/11/17 21:00 Glucose 95 mg/dL (70-105) 09/11/17 21:00 Calcium 10.1 mg/dL (8.6-10.3) 09/11/17 21:00 Magnesium 2.0 mg/dL (1.9-2.7) 09/11/17 21:00 Total Bilirubin 0.3 mg/dL (0.3-1.0) 09/11/17 21:00 Direct Bilirubin 0.06 mg/dL (0.0-0.2) 09/11/17 21:00 AST 15 U/L (13-39) 09/11/17 21:00 ALT 8 U/L (7-52) 09/11/17 21:00 Alkaline Phosphatase 81 U/L (34-104) 09/11/17 21:00 Troponin I < 0.01 ng/mL (0.01-0.05) L 09/11/17 21:00 B-Natriuretic Peptide < 5.0 pg/mL (5.0-100.0) L 09/11/17 21:00 Total Protein 7.5 gm/dL (6.0-8.3) 09/11/17 21:00 Albumin 4.4 gm/dL (3.7-5.3) 09/11/17 21:00 Globulin 3.1 gm/dL 09/11/17 21:00 Albumin/Globulin Ratio 1.4 (1.0-1.8) 09/11/17 21:00 Free T4 1.12 ng/dL (0.82-1.77) 09/11/17 21:00 TSH 9.04 uIU/ml (0.34-5.60) H 09/11/17 21:00 - Physical Exam Vitals and I&O: Vital Signs Temp 98.0 F 09/14/17 20:00 Pulse 79 09/14/17 20:00 Resp 20 09/15/17 10:49 BP 106/64 09/14/17 20:00 Pulse Ox 93 09/14/17 20:00 Intake & Output 09/14/17 09/15/17 09/15/17 18:59 06:59 18:59 Intake Total 800 Balance 800 Intake: Oral 800 Active Medications: Current Medications Acetaminophen (Tylenol) 650 mg PO Q4HR PRN PRN Reason: Mild Pain / Temp above 100 Stop: 11/11/17 01:32 Last Admin: 09/12/17 13:53 Dose: 650 mg Divalproex Sodium (Depakote Dr) 125 mg PO BID KALEY PRN Reason: Protocol Stop: 11/11/17 16:59 Last Admin: 09/15/17 11:11 Dose: 125 mg Donepezil HCl (Aricept) 5 mg PO DAILY KALEY Stop: 11/11/17 16:59 Last Admin: 09/15/17 11:10 Dose: 5 mg Lorazepam (Ativan) 0.5 mg PO Q4HR PRN; Protocol PRN Reason: Anxiety Stop: 10/12/17 01:32 Last Admin: 09/15/17 11:10 Dose: 0.5 mg Multivitamins/Vitamin C (Theragran) 1 tab PO DAILY KALEY Stop: 11/11/17 08:59 Last Admin: 09/15/17 11:10 Dose: 1 tab Trazodone HCl (Desyrel) 100 mg PO HS KALEY PRN Reason: Protocol Stop: 11/11/17 20:59 Last Admin: 09/14/17 21:14 Dose: 100 mg Venlafaxine HCl (Effexor Xr) 150 mg PO DAILY KALEY PRN Reason: Protocol Stop: 11/11/17 08:59 Last Admin: 09/15/17 11:10 Dose: 150 mg Zolpidem Tartrate (Ambien) 5 mg PO HS PRN PRN Reason: Insomnia Stop: 11/11/17 01:32 Last Admin: 09/14/17 21:14 Dose: 5 mg General: alert HEENT: NC/AT, PERRLA Neck: Supple Lungs: CTAB Cardiovascular: RRR, Normal S1, Normal S2, without murmur Abdomen: soft, non-tender, non-distended Internal Medicine Assmt/Plan - Assessment Assessment: dementia depression oa hypothyroidism htn cad - Plan Plan: fall precautions cpm
--- NOTE | 2017-09-16 08:57 | General Progress Note ---
Subjective - Review of Systems Events since last encounter: awake in no acute distress no signs of pain Objective - Results Result Diagrams: 09/11/17 21:00 09/11/17 21:00 Recent Labs: Laboratory Last Values WBC 11.5 Th/cmm (4.8-10.8) H 09/11/17 21:00 RBC 5.14 Mil/cmm (3.80-5.20) 09/11/17 21:00 Hgb 15.3 gm/dL (12-16) 09/11/17 21:00 Hct 45.9 % (41.0-60) 09/11/17 21:00 MCV 89.3 fl (81-100) 09/11/17 21:00 MCH 29.7 pg (27.0-31.0) 09/11/17 21:00 MCHC Differential 33.2 pg (28.0-36.0) 09/11/17 21:00 RDW 12.6 % (11.5-20.0) 09/11/17 21:00 Plt Count 421 Th/cmm (150-400) H 09/11/17 21:00 MPV 7.8 fl 09/11/17 21:00 Neutrophils % 54.4 % (40.0-80.0) 09/11/17 21:00 Lymphocytes % 37.3 % (20.0-50.0) 09/11/17 21:00 Monocytes % 6.6 % (2.0-10.0) 09/11/17 21:00 Eosinophils % 1.7 % (0.0-5.0) 09/11/17 21:00 Basophils % 0.0 % (0.0-2.0) 09/11/17 21:00 Sodium 136 mEq/L (136-145) 09/11/17 21:00 Potassium 4.2 mEq/L (3.5-5.1) 09/11/17 21:00 Chloride 98 mEq/L (98-107) 09/11/17 21:00 Carbon Dioxide 26.1 mEq/L (21.0-31.0) 09/11/17 21:00 Anion Gap 16.1 (7.0-16.0) H 09/11/17 21:00 BUN 15 mg/dL (7-25) 09/11/17 21:00 Creatinine 1.0 mg/dL (0.6-1.2) 09/11/17 21:00 Est GFR ( Amer) TNP 09/11/17 21:00 Est GFR (Non-Af Amer) TNP 09/11/17 21:00 BUN/Creatinine Ratio 15.0 09/11/17 21:00 Glucose 95 mg/dL (70-105) 09/11/17 21:00 Calcium 10.1 mg/dL (8.6-10.3) 09/11/17 21:00 Magnesium 2.0 mg/dL (1.9-2.7) 09/11/17 21:00 Total Bilirubin 0.3 mg/dL (0.3-1.0) 09/11/17 21:00 Direct Bilirubin 0.06 mg/dL (0.0-0.2) 09/11/17 21:00 AST 15 U/L (13-39) 09/11/17 21:00 ALT 8 U/L (7-52) 09/11/17 21:00 Alkaline Phosphatase 81 U/L (34-104) 09/11/17 21:00 Troponin I < 0.01 ng/mL (0.01-0.05) L 09/11/17 21:00 B-Natriuretic Peptide < 5.0 pg/mL (5.0-100.0) L 09/11/17 21:00 Total Protein 7.5 gm/dL (6.0-8.3) 09/11/17 21:00 Albumin 4.4 gm/dL (3.7-5.3) 09/11/17 21:00 Globulin 3.1 gm/dL 09/11/17 21:00 Albumin/Globulin Ratio 1.4 (1.0-1.8) 09/11/17 21:00 Free T4 1.12 ng/dL (0.82-1.77) 09/11/17 21:00 TSH 9.04 uIU/ml (0.34-5.60) H 09/11/17 21:00 Valproic Acid 18.1 ug/mL (50.0-100.0) L 09/16/17 06:20 - Physical Exam Vitals and I&O: Vital Signs Temp 98.2 F 09/16/17 06:53 Pulse 65 09/16/17 06:53 Resp 19 09/16/17 06:53 BP 131/78 09/16/17 06:53 Pulse Ox 96 09/16/17 06:53 Intake & Output 09/15/17 09/16/17 09/16/17 18:59 06:59 18:59 Intake Total 1200 250 Balance 1200 250 Intake: Oral 1200 250 Other: # Voids 4 2 # Bowel Movements 2 0 Active Medications: Current Medications Acetaminophen (Tylenol) 650 mg PO Q4HR PRN PRN Reason: Mild Pain / Temp above 100 Stop: 11/11/17 01:32 Last Admin: 09/12/17 13:53 Dose: 650 mg Divalproex Sodium (Depakote Dr) 125 mg PO BID KALEY PRN Reason: Protocol Stop: 11/11/17 16:59 Last Admin: 09/16/17 08:40 Dose: Not Given Donepezil HCl (Aricept) 10 mg PO DAILY KALEY Stop: 11/15/17 06:06 Lorazepam (Ativan) 0.5 mg PO Q4HR PRN; Protocol PRN Reason: Anxiety Stop: 10/12/17 01:32 Last Admin: 09/15/17 11:10 Dose: 0.5 mg Multivitamins/Vitamin C (Theragran) 1 tab PO DAILY KALEY Stop: 11/11/17 08:59 Last Admin: 09/15/17 11:10 Dose: 1 tab Trazodone HCl (Desyrel) 100 mg PO HS KALEY PRN Reason: Protocol Stop: 11/11/17 20:59 Last Admin: 09/15/17 21:17 Dose: 100 mg Venlafaxine HCl (Effexor Xr) 150 mg PO DAILY KALEY PRN Reason: Protocol Stop: 11/11/17 08:59 Last Admin: 09/15/17 11:10 Dose: 150 mg Zolpidem Tartrate (Ambien) 5 mg PO HS PRN PRN Reason: Insomnia Stop: 11/11/17 01:32 Last Admin: 09/14/17 21:14 Dose: 5 mg
[2017-09-16] MEDS: Multivitamin Tab PO SCH (09:29)
[2017-09-16] MEDS ORDERED: Magnesium Hydroxide (MOM) 30 mL UDC PO PRN (14:43)
--- NOTE | 2017-09-16 20:48 | Progress Notes ---
DATE: 09/16/2017 Chart reviewed and the patient interviewed. Also, discussed the patient's condition with the staff and reviewed records and labs. The patient seems to be disoriented and still has disorganized thoughts. Also, still needs lots of redirections and she is still confused. Also, is still easily agitated and irritable and have disorganized thoughts. MENTAL STATUS EXAMINATION: During interview, the patient is confused and she seems to be preoccupied and unable to answer any of my questions coherently. LABORATORY DATA: No new labs available for review. DIAGNOSES: No change in the diagnoses. 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 VITAL SIGNS: Stable and no new medical issues. PLAN: We will increase Aricept to 10 mg every day. Also, we will get Depakote blood level and we will continue to follow up her behavior and her condition closely. JOB# [id number]
[2017-09-17] MEDS: Multivitamin Tab PO SCH (08:18)
--- NOTE | 2017-09-17 20:23 | General Progress Note ---
Objective - Results Result Diagrams: 09/11/17 21:00 09/11/17 21:00 Recent Labs: Laboratory Last Values WBC 11.5 Th/cmm (4.8-10.8) H 09/11/17 21:00 RBC 5.14 Mil/cmm (3.80-5.20) 09/11/17 21:00 Hgb 15.3 gm/dL (12-16) 09/11/17 21:00 Hct 45.9 % (41.0-60) 09/11/17 21:00 MCV 89.3 fl (81-100) 09/11/17 21:00 MCH 29.7 pg (27.0-31.0) 09/11/17 21:00 MCHC Differential 33.2 pg (28.0-36.0) 09/11/17 21:00 RDW 12.6 % (11.5-20.0) 09/11/17 21:00 Plt Count 421 Th/cmm (150-400) H 09/11/17 21:00 MPV 7.8 fl 09/11/17 21:00 Neutrophils % 54.4 % (40.0-80.0) 09/11/17 21:00 Lymphocytes % 37.3 % (20.0-50.0) 09/11/17 21:00 Monocytes % 6.6 % (2.0-10.0) 09/11/17 21:00 Eosinophils % 1.7 % (0.0-5.0) 09/11/17 21:00 Basophils % 0.0 % (0.0-2.0) 09/11/17 21:00 Sodium 136 mEq/L (136-145) 09/11/17 21:00 Potassium 4.2 mEq/L (3.5-5.1) 09/11/17 21:00 Chloride 98 mEq/L (98-107) 09/11/17 21:00 Carbon Dioxide 26.1 mEq/L (21.0-31.0) 09/11/17 21:00 Anion Gap 16.1 (7.0-16.0) H 09/11/17 21:00 BUN 15 mg/dL (7-25) 09/11/17 21:00 Creatinine 1.0 mg/dL (0.6-1.2) 09/11/17 21:00 Est GFR ( Amer) TNP 09/11/17 21:00 Est GFR (Non-Af Amer) TNP 09/11/17 21:00 BUN/Creatinine Ratio 15.0 09/11/17 21:00 Glucose 95 mg/dL (70-105) 09/11/17 21:00 Calcium 10.1 mg/dL (8.6-10.3) 09/11/17 21:00 Magnesium 2.0 mg/dL (1.9-2.7) 09/11/17 21:00 Total Bilirubin 0.3 mg/dL (0.3-1.0) 09/11/17 21:00 Direct Bilirubin 0.06 mg/dL (0.0-0.2) 09/11/17 21:00 AST 15 U/L (13-39) 09/11/17 21:00 ALT 8 U/L (7-52) 09/11/17 21:00 Alkaline Phosphatase 81 U/L (34-104) 09/11/17 21:00 Troponin I < 0.01 ng/mL (0.01-0.05) L 09/11/17 21:00 B-Natriuretic Peptide < 5.0 pg/mL (5.0-100.0) L 09/11/17 21:00 Total Protein 7.5 gm/dL (6.0-8.3) 09/11/17 21:00 Albumin 4.4 gm/dL (3.7-5.3) 09/11/17 21:00 Globulin 3.1 gm/dL 09/11/17 21:00 Albumin/Globulin Ratio 1.4 (1.0-1.8) 09/11/17 21:00 Free T4 1.12 ng/dL (0.82-1.77) 09/11/17 21:00 TSH 9.04 uIU/ml (0.34-5.60) H 09/11/17 21:00 Valproic Acid 18.1 ug/mL (50.0-100.0) L 09/16/17 06:20 - Physical Exam Vitals and I&O: Vital Signs Temp 97.5 F 09/17/17 14:00 Pulse 89 09/17/17 14:00 Resp 18 09/17/17 14:00 BP 131/78 09/17/17 14:00 Pulse Ox 97 09/17/17 14:00 Intake & Output 09/17/17 09/17/17 09/18/17 06:59 18:59 06:59 Intake Total 1100 Balance 1100 Intake: Oral 1100 Other: # Voids 4 # Bowel Movements 0 Active Medications: Current Medications Acetaminophen (Tylenol) 650 mg PO Q4HR PRN PRN Reason: Mild Pain / Temp above 100 Stop: 11/11/17 01:32 Last Admin: 09/12/17 13:53 Dose: 650 mg Divalproex Sodium (Depakote Dr) 250 mg PO BID KALEY PRN Reason: Protocol Stop: 11/16/17 11:45 Last Admin: 09/17/17 16:30 Dose: 250 mg Donepezil HCl (Aricept) 10 mg PO DAILY KALEY Stop: 11/15/17 06:06 Last Admin: 09/17/17 08:17 Dose: 10 mg Lorazepam (Ativan) 0.5 mg PO Q4HR PRN; Protocol PRN Reason: Anxiety Stop: 10/12/17 01:32 Last Admin: 09/16/17 09:28 Dose: 0.5 mg Magnesium Hydroxide (Milk Of Magnesia) 30 ml PO HS PRN PRN Reason: Constipation Stop: 11/15/17 14:42 Multivitamins/Vitamin C (Theragran) 1 tab PO DAILY KALEY Stop: 11/11/17 08:59 Last Admin: 09/17/17 08:18 Dose: 1 tab Trazodone HCl (Desyrel) 100 mg PO HS KALEY PRN Reason: Protocol Stop: 11/11/17 20:59 Last Admin: 09/16/17 21:11 Dose: 100 mg Venlafaxine HCl (Effexor Xr) 150 mg PO DAILY KALEY PRN Reason: Protocol Stop: 11/11/17 08:59 Last Admin: 09/17/17 08:17 Dose: 150 mg Zolpidem Tartrate (Ambien) 5 mg PO HS PRN PRN Reason: Insomnia Stop: 11/11/17 01:32 Last Admin: 09/14/17 21:14 Dose: 5 mg
--- NOTE | 2017-09-17 23:48 | Progress Notes ---
DATE: 09/17/2017 PSYCHIATRIC PROGRESS NOTE SUBJECTIVE: Chart reviewed and the patient interviewed. Also, discussed the patient's condition with the staff and reviewed records and labs. The patient continued to be confused. The patient also states "I am 55-year-old". She is thinking that she is only 55-year-old. She also does not know where she lives. The patient also still has episodes of agitation, irritability, and difficulty following directions at times. She also seems to be withdrawn and interacting minimally and stays by herself in her room most of the time. MENTAL STATUS EXAMINATION: During interview, the patient is confused and forgetful and staring to imaginary objects. ESTIMATED LENGTH OF STAY: 2-3 days. REASON FOR CONTINUED HOSPITAL STAY: The patient is still confused and agitated and needs a close monitoring. LABORATORY DATA: Depakote blood level that was done yesterday, came back to be 18.7, which is below therapeutic level. MEDICATIONS: We will increase Depakote to 250 mg twice a day. Also, we will continue monitoring her behavior and her condition closely. JOB# [id number]
[2017-09-18] MEDS: Multivitamin Tab PO SCH (08:54)
--- NOTE | 2017-09-18 13:37 | Internal Medicine Prog Note ---
Internal Medicine Subjective - Subjective Service Date: 09/18/17 Patient is:: awake Per staff patient has:: tolerating meds Internal Medicine Objective - Results Result Diagrams: 09/11/17 21:00 09/11/17 21:00 Recent Labs: Laboratory Last Values WBC 11.5 Th/cmm (4.8-10.8) H 09/11/17 21:00 RBC 5.14 Mil/cmm (3.80-5.20) 09/11/17 21:00 Hgb 15.3 gm/dL (12-16) 09/11/17 21:00 Hct 45.9 % (41.0-60) 09/11/17 21:00 MCV 89.3 fl (81-100) 09/11/17 21:00 MCH 29.7 pg (27.0-31.0) 09/11/17 21:00 MCHC Differential 33.2 pg (28.0-36.0) 09/11/17 21:00 RDW 12.6 % (11.5-20.0) 09/11/17 21:00 Plt Count 421 Th/cmm (150-400) H 09/11/17 21:00 MPV 7.8 fl 09/11/17 21:00 Neutrophils % 54.4 % (40.0-80.0) 09/11/17 21:00 Lymphocytes % 37.3 % (20.0-50.0) 09/11/17 21:00 Monocytes % 6.6 % (2.0-10.0) 09/11/17 21:00 Eosinophils % 1.7 % (0.0-5.0) 09/11/17 21:00 Basophils % 0.0 % (0.0-2.0) 09/11/17 21:00 Sodium 136 mEq/L (136-145) 09/11/17 21:00 Potassium 4.2 mEq/L (3.5-5.1) 09/11/17 21:00 Chloride 98 mEq/L (98-107) 09/11/17 21:00 Carbon Dioxide 26.1 mEq/L (21.0-31.0) 09/11/17 21:00 Anion Gap 16.1 (7.0-16.0) H 09/11/17 21:00 BUN 15 mg/dL (7-25) 09/11/17 21:00 Creatinine 1.0 mg/dL (0.6-1.2) 09/11/17 21:00 Est GFR ( Amer) TNP 09/11/17 21:00 Est GFR (Non-Af Amer) TNP 09/11/17 21:00 BUN/Creatinine Ratio 15.0 09/11/17 21:00 Glucose 95 mg/dL (70-105) 09/11/17 21:00 Calcium 10.1 mg/dL (8.6-10.3) 09/11/17 21:00 Magnesium 2.0 mg/dL (1.9-2.7) 09/11/17 21:00 Total Bilirubin 0.3 mg/dL (0.3-1.0) 09/11/17 21:00 Direct Bilirubin 0.06 mg/dL (0.0-0.2) 09/11/17 21:00 AST 15 U/L (13-39) 09/11/17 21:00 ALT 8 U/L (7-52) 09/11/17 21:00 Alkaline Phosphatase 81 U/L (34-104) 09/11/17 21:00 Troponin I < 0.01 ng/mL (0.01-0.05) L 09/11/17 21:00 B-Natriuretic Peptide < 5.0 pg/mL (5.0-100.0) L 09/11/17 21:00 Total Protein 7.5 gm/dL (6.0-8.3) 09/11/17 21:00 Albumin 4.4 gm/dL (3.7-5.3) 09/11/17 21:00 Globulin 3.1 gm/dL 09/11/17 21:00 Albumin/Globulin Ratio 1.4 (1.0-1.8) 09/11/17 21:00 Free T4 1.12 ng/dL (0.82-1.77) 09/11/17 21:00 TSH 9.04 uIU/ml (0.34-5.60) H 09/11/17 21:00 Valproic Acid 18.1 ug/mL (50.0-100.0) L 09/16/17 06:20 - Physical Exam Vitals and I&O: Vital Signs Temp 98 F 09/18/17 05:02 Pulse 72 09/18/17 05:02 Resp 19 09/18/17 05:02 BP 132/77 09/18/17 05:02 Pulse Ox 96 09/18/17 05:02 Intake & Output 09/17/17 09/18/17 09/18/17 18:59 06:59 18:59 Intake Total 1100 480 Balance 1100 480 Intake: Oral 1100 480 Other: # Voids 4 2 # Bowel Movements 0 Active Medications: Current Medications Acetaminophen (Tylenol) 650 mg PO Q4HR PRN PRN Reason: Mild Pain / Temp above 100 Stop: 11/11/17 01:32 Last Admin: 09/12/17 13:53 Dose: 650 mg Divalproex Sodium (Depakote Dr) 250 mg PO BID KALEY PRN Reason: Protocol Stop: 11/16/17 11:45 Last Admin: 09/18/17 08:54 Dose: 250 mg Donepezil HCl (Aricept) 10 mg PO DAILY KALEY Stop: 11/15/17 06:06 Last Admin: 09/18/17 08:54 Dose: 10 mg Lorazepam (Ativan) 0.5 mg PO Q4HR PRN; Protocol PRN Reason: Anxiety Stop: 10/12/17 01:32 Last Admin: 09/16/17 09:28 Dose: 0.5 mg Magnesium Hydroxide (Milk Of Magnesia) 30 ml PO HS PRN PRN Reason: Constipation Stop: 11/15/17 14:42 Multivitamins/Vitamin C (Theragran) 1 tab PO DAILY KALEY Stop: 11/11/17 08:59 Last Admin: 09/18/17 08:54 Dose: 1 tab Trazodone HCl (Desyrel) 150 mg PO HS KALEY PRN Reason: Protocol Stop: 11/17/17 20:59 Venlafaxine HCl (Effexor Xr) 150 mg PO DAILY KALEY PRN Reason: Protocol Stop: 11/11/17 08:59 Last Admin: 09/18/17 08:54 Dose: 150 mg Zolpidem Tartrate (Ambien) 5 mg PO HS PRN PRN Reason: Insomnia Stop: 11/11/17 01:32 Last Admin: 09/14/17 21:14 Dose: 5 mg General: alert HEENT: NC/AT, PERRLA Neck: Supple Lungs: CTAB Cardiovascular: RRR, Normal S1, Normal S2, without murmur Abdomen: soft, non-tender, non-distended Internal Medicine Assmt/Plan - Assessment Assessment: dementia depression oa hypothyroidism htn cad - Plan Plan: fall precautions cpm
[2017-09-19] MEDS: Multivitamin Tab PO SCH (09:30)
--- NOTE | 2017-09-19 10:39 | Internal Medicine Prog Note ---
Internal Medicine Subjective - Subjective Patient is:: awake Per staff patient has:: tolerating meds Internal Medicine Objective - Results Result Diagrams: 09/11/17 21:00 09/11/17 21:00 Recent Labs: Laboratory Last Values WBC 11.5 Th/cmm (4.8-10.8) H 09/11/17 21:00 RBC 5.14 Mil/cmm (3.80-5.20) 09/11/17 21:00 Hgb 15.3 gm/dL (12-16) 09/11/17 21:00 Hct 45.9 % (41.0-60) 09/11/17 21:00 MCV 89.3 fl (81-100) 09/11/17 21:00 MCH 29.7 pg (27.0-31.0) 09/11/17 21:00 MCHC Differential 33.2 pg (28.0-36.0) 09/11/17 21:00 RDW 12.6 % (11.5-20.0) 09/11/17 21:00 Plt Count 421 Th/cmm (150-400) H 09/11/17 21:00 MPV 7.8 fl 09/11/17 21:00 Neutrophils % 54.4 % (40.0-80.0) 09/11/17 21:00 Lymphocytes % 37.3 % (20.0-50.0) 09/11/17 21:00 Monocytes % 6.6 % (2.0-10.0) 09/11/17 21:00 Eosinophils % 1.7 % (0.0-5.0) 09/11/17 21:00 Basophils % 0.0 % (0.0-2.0) 09/11/17 21:00 Sodium 136 mEq/L (136-145) 09/11/17 21:00 Potassium 4.2 mEq/L (3.5-5.1) 09/11/17 21:00 Chloride 98 mEq/L (98-107) 09/11/17 21:00 Carbon Dioxide 26.1 mEq/L (21.0-31.0) 09/11/17 21:00 Anion Gap 16.1 (7.0-16.0) H 09/11/17 21:00 BUN 15 mg/dL (7-25) 09/11/17 21:00 Creatinine 1.0 mg/dL (0.6-1.2) 09/11/17 21:00 Est GFR ( Amer) TNP 09/11/17 21:00 Est GFR (Non-Af Amer) TNP 09/11/17 21:00 BUN/Creatinine Ratio 15.0 09/11/17 21:00 Glucose 95 mg/dL (70-105) 09/11/17 21:00 Calcium 10.1 mg/dL (8.6-10.3) 09/11/17 21:00 Magnesium 2.0 mg/dL (1.9-2.7) 09/11/17 21:00 Total Bilirubin 0.3 mg/dL (0.3-1.0) 09/11/17 21:00 Direct Bilirubin 0.06 mg/dL (0.0-0.2) 09/11/17 21:00 AST 15 U/L (13-39) 09/11/17 21:00 ALT 8 U/L (7-52) 09/11/17 21:00 Alkaline Phosphatase 81 U/L (34-104) 09/11/17 21:00 Troponin I < 0.01 ng/mL (0.01-0.05) L 09/11/17 21:00 B-Natriuretic Peptide < 5.0 pg/mL (5.0-100.0) L 09/11/17 21:00 Total Protein 7.5 gm/dL (6.0-8.3) 09/11/17 21:00 Albumin 4.4 gm/dL (3.7-5.3) 09/11/17 21:00 Globulin 3.1 gm/dL 09/11/17 21:00 Albumin/Globulin Ratio 1.4 (1.0-1.8) 09/11/17 21:00 Free T4 1.12 ng/dL (0.82-1.77) 09/11/17 21:00 TSH 9.04 uIU/ml (0.34-5.60) H 09/11/17 21:00 Valproic Acid 18.1 ug/mL (50.0-100.0) L 09/16/17 06:20 - Physical Exam Vitals and I&O: Vital Signs Temp 98.1 F 09/19/17 05:25 Pulse 79 09/19/17 05:25 Resp 19 09/19/17 05:25 BP 128/79 09/19/17 05:25 Pulse Ox 97 09/19/17 05:25 Intake & Output 09/18/17 09/19/17 09/19/17 18:59 06:59 18:59 Intake Total 480 Balance 480 Intake: Oral 480 Other: # Voids 2 Active Medications: Current Medications Acetaminophen (Tylenol) 650 mg PO Q4HR PRN PRN Reason: Mild Pain / Temp above 100 Stop: 11/11/17 01:32 Last Admin: 09/12/17 13:53 Dose: 650 mg Divalproex Sodium (Depakote Dr) 250 mg PO BID KALEY PRN Reason: Protocol Stop: 11/16/17 11:45 Last Admin: 09/19/17 09:30 Dose: 250 mg Donepezil HCl (Aricept) 10 mg PO DAILY KALEY Stop: 11/15/17 06:06 Last Admin: 09/19/17 09:30 Dose: 10 mg Lorazepam (Ativan) 0.5 mg PO Q4HR PRN; Protocol PRN Reason: Anxiety Stop: 10/12/17 01:32 Last Admin: 09/16/17 09:28 Dose: 0.5 mg Magnesium Hydroxide (Milk Of Magnesia) 30 ml PO HS PRN PRN Reason: Constipation Stop: 11/15/17 14:42 Multivitamins/Vitamin C (Theragran) 1 tab PO DAILY KALEY Stop: 11/11/17 08:59 Last Admin: 09/19/17 09:30 Dose: 1 tab Trazodone HCl (Desyrel) 150 mg PO HS KALEY PRN Reason: Protocol Stop: 11/17/17 20:59 Last Admin: 09/18/17 20:27 Dose: 150 mg Venlafaxine HCl (Effexor Xr) 150 mg PO DAILY KALEY PRN Reason: Protocol Stop: 11/11/17 08:59 Last Admin: 09/19/17 09:31 Dose: 150 mg Zolpidem Tartrate (Ambien) 5 mg PO HS PRN PRN Reason: Insomnia Stop: 11/11/17 01:32 Last Admin: 09/19/17 00:40 Dose: 5 mg General: alert HEENT: NC/AT, PERRLA Neck: Supple Lungs: CTAB Cardiovascular: RRR, Normal S1, Normal S2, without murmur Abdomen: soft, non-tender, non-distended Nutritional Asmnt/Malnutr-PDOC - Dietary Evaluation Malnutrition Findings (Please click <Entered> for more info): Nutritional Asmnt/Malnutrition Start: 09/18/17 16: 48 Text: Status: Complete Freq: Document 09/16/17 16:48 LCHENG (Rec: 09/18/17 16:55 LCHENG [id number]) Nutritional Asmnt/Malnutrition Patient General Information Nutritional Screening Moderate Risk Diagnosis psychosis Pertinent Medical Hx/Surgical Hx HTN, hypothyroidism, conorary artery bypass grafting Subjective Information Pt seen sleeping at time of visit. Per EMR, PO intake 75- 100%. Current Diet Order/ Nutrition Support mech soft chopped, RICK Pertinent Medications theragran Pertinent Labs 09/11 nutrition labs WNL Nutritional Hx/Data Height 1.65 m Height (Calculated Centimeters) 165.1 Current Weight (lbs) 58.967 kg Weight (Calculated Kilograms) 59.0 Weight (Calculated Grams) 30084.0 [place] Body Weight 130 Body Mass Index (BMI) 21.6 Weight Status Approriate GI Symptoms GI Symptoms None Last BM 09/15 Difficult in: None Skin Integrity/Comment: intact Current %PO Good (75-100%) Estimated Nutritional Goals BEE in Kcals: Using Current wt Calories/Kcals/Kg 25-30 Kcals Calculated 9688-5253 Protein g/k Protein Calculated 59 Fluid: ml 1475-1770ml (1ml/kcal) Nutritional Problem No current Nutrition Prob Problem N/A Malnutrition Alert Protein-Calorie Malnutrition N/A Is there a minimum of two criteria No selected? Query Text:Check all the applicable criteria. A minimum of two criteria are recommended for diagnosis of either severe or non-severe malnutrition. Intervention/Recommendation Comments 1. Continue with current diet as ordered. 2. Monitor PO intake, wt, labs and skin integrity 3. F/U as low risk in 7 days, 09/23 Expected Outcomes/Goals Expected Outcomes/Goals 1. PO intake to meet at least 75% of nutritional needs. 2. Wt stability, skin to remain intact, labs to approach WNL.
--- NOTE | 2017-09-20 02:21 | Progress Notes ---
DATE: 09/19/[address] Hammer. Case was discussed with staff of the patient and reviewed records. She is a 72-year-old female who was transferred to [facility] in the Emergency Room because of becoming more aggressive. The patient perseverate. She has a bus waiting for her outside and that she needs to leave. The patient is a very poor historian. Most of the information on records with a history of dementia. ALLERGIES: She has no known drug allergies. The patient with a history of coronary artery bypass. The patient continues to be a poor historian, unpredictable, impulsive, easily agitated. She is on Depakote 250 mg twice a day, Aricept 10 mg daily, trazodone 150 mg at bedtime. Venlafaxine 150 mg daily with no side effects, no sedation or nausea, no extrapyramidal symptoms. We will continue to work with the patient in group therapy, milieu therapy and adjust medications. JOB# [id number]
[2017-09-20] MEDS: Multivitamin Tab PO SCH (08:50)
--- NOTE | 2017-09-20 12:10 | General Progress Note ---
Subjective - Review of Systems Events since last encounter: patient with h/o dementia confused, disorganized Objective - Results Result Diagrams: 09/11/17 21:00 09/11/17 21:00 Recent Labs: Laboratory Last Values WBC 11.5 Th/cmm (4.8-10.8) H 09/11/17 21:00 RBC 5.14 Mil/cmm (3.80-5.20) 09/11/17 21:00 Hgb 15.3 gm/dL (12-16) 09/11/17 21:00 Hct 45.9 % (41.0-60) 09/11/17 21:00 MCV 89.3 fl (81-100) 09/11/17 21:00 MCH 29.7 pg (27.0-31.0) 09/11/17 21:00 MCHC Differential 33.2 pg (28.0-36.0) 09/11/17 21:00 RDW 12.6 % (11.5-20.0) 09/11/17 21:00 Plt Count 421 Th/cmm (150-400) H 09/11/17 21:00 MPV 7.8 fl 09/11/17 21:00 Neutrophils % 54.4 % (40.0-80.0) 09/11/17 21:00 Lymphocytes % 37.3 % (20.0-50.0) 09/11/17 21:00 Monocytes % 6.6 % (2.0-10.0) 09/11/17 21:00 Eosinophils % 1.7 % (0.0-5.0) 09/11/17 21:00 Basophils % 0.0 % (0.0-2.0) 09/11/17 21:00 Sodium 136 mEq/L (136-145) 09/11/17 21:00 Potassium 4.2 mEq/L (3.5-5.1) 09/11/17 21:00 Chloride 98 mEq/L (98-107) 09/11/17 21:00 Carbon Dioxide 26.1 mEq/L (21.0-31.0) 09/11/17 21:00 Anion Gap 16.1 (7.0-16.0) H 09/11/17 21:00 BUN 15 mg/dL (7-25) 09/11/17 21:00 Creatinine 1.0 mg/dL (0.6-1.2) 09/11/17 21:00 Est GFR ( Amer) TNP 09/11/17 21:00 Est GFR (Non-Af Amer) TNP 09/11/17 21:00 BUN/Creatinine Ratio 15.0 09/11/17 21:00 Glucose 95 mg/dL (70-105) 09/11/17 21:00 Calcium 10.1 mg/dL (8.6-10.3) 09/11/17 21:00 Magnesium 2.0 mg/dL (1.9-2.7) 09/11/17 21:00 Total Bilirubin 0.3 mg/dL (0.3-1.0) 09/11/17 21:00 Direct Bilirubin 0.06 mg/dL (0.0-0.2) 09/11/17 21:00 AST 15 U/L (13-39) 09/11/17 21:00 ALT 8 U/L (7-52) 09/11/17 21:00 Alkaline Phosphatase 81 U/L (34-104) 09/11/17 21:00 Troponin I < 0.01 ng/mL (0.01-0.05) L 09/11/17 21:00 B-Natriuretic Peptide < 5.0 pg/mL (5.0-100.0) L 09/11/17 21:00 Total Protein 7.5 gm/dL (6.0-8.3) 09/11/17 21:00 Albumin 4.4 gm/dL (3.7-5.3) 09/11/17 21:00 Globulin 3.1 gm/dL 09/11/17 21:00 Albumin/Globulin Ratio 1.4 (1.0-1.8) 09/11/17 21:00 Free T4 1.12 ng/dL (0.82-1.77) 09/11/17 21:00 TSH 9.04 uIU/ml (0.34-5.60) H 09/11/17 21:00 Valproic Acid 18.1 ug/mL (50.0-100.0) L 09/16/17 06:20 - Physical Exam Vitals and I&O: Vital Signs Temp 98.1 F 09/19/17 15:58 Pulse 82 09/19/17 15:58 Resp 22 09/19/17 15:58 BP 125/70 09/19/17 15:58 Pulse Ox 97 09/19/17 15:58 Intake & Output 09/19/17 09/20/17 09/20/17 18:59 06:59 18:59 Intake Total 1400 Balance 1400 Intake: Oral 1400 Other: # Voids 3 # Bowel Movements 1 Active Medications: Current Medications Acetaminophen (Tylenol) 650 mg PO Q4HR PRN PRN Reason: Mild Pain / Temp above 100 Stop: 11/11/17 01:32 Last Admin: 09/12/17 13:53 Dose: 650 mg Divalproex Sodium (Depakote Dr) 250 mg PO BID KALEY PRN Reason: Protocol Stop: 11/16/17 11:45 Last Admin: 09/19/17 17:21 Dose: 250 mg Donepezil HCl (Aricept) 10 mg PO DAILY KALEY Stop: 11/15/17 06:06 Last Admin: 09/20/17 08:50 Dose: 10 mg Lorazepam (Ativan) 0.5 mg PO Q4HR PRN; Protocol PRN Reason: Anxiety Stop: 10/12/17 01:32 Last Admin: 09/20/17 01:05 Dose: 0.5 mg Magnesium Hydroxide (Milk Of Magnesia) 30 ml PO HS PRN PRN Reason: Constipation Stop: 11/15/17 14:42 Multivitamins/Vitamin C (Theragran) 1 tab PO DAILY KALEY Stop: 11/11/17 08:59 Last Admin: 09/20/17 08:50 Dose: 1 tab Trazodone HCl (Desyrel) 150 mg PO HS KALEY PRN Reason: Protocol Stop: 11/17/17 20:59 Last Admin: 09/19/17 21:12 Dose: 150 mg Venlafaxine HCl (Effexor Xr) 150 mg PO DAILY KALEY PRN Reason: Protocol Stop: 11/11/17 08:59 Last Admin: 09/20/17 08:50 Dose: 150 mg Zolpidem Tartrate (Ambien) 5 mg PO HS PRN PRN Reason: Insomnia Stop: 11/11/17 01:32 Last Admin: 09/19/17 21:13 Dose: 5 mg Nutritional Asmnt/Malnutr-PDOC - Dietary Evaluation Malnutrition Findings (Please click <Entered> for more info): Nutritional Asmnt/Malnutrition Start: 09/18/17 16: 48 Text: Status: Complete Freq: Document 09/16/17 16:48 [email or web address] (Rec: 09/18/17 16:55 LCCONCHITA [id number]) Nutritional Asmnt/Malnutrition Patient General Information Nutritional Screening Moderate Risk Diagnosis psychosis Pertinent Medical Hx/Surgical Hx HTN, hypothyroidism, conorary artery bypass grafting Subjective Information Pt seen sleeping at time of visit. Per EMR, PO intake 75- 100%. Current Diet Order/ Nutrition Support mech soft chopped, RICK Pertinent Medications theragran Pertinent Labs 09/11 nutrition labs WNL Nutritional Hx/Data Height 1.65 m Height (Calculated Centimeters) 165.1 Current Weight (lbs) 58.967 kg Weight (Calculated Kilograms) 59.0 Weight (Calculated Grams) 51952.0 Hayden Body Weight 130 Body Mass Index (BMI) 21.6 Weight Status Approriate GI Symptoms GI Symptoms None Last BM 09/15 Difficult in: None Skin Integrity/Comment: intact Current %PO Good (75-100%) Estimated Nutritional Goals BEE in Kcals: Using Current wt Calories/Kcals/Kg 25-30 Kcals Calculated 3956-0542 Protein g/k Protein Calculated 59 Fluid: ml 1475-1770ml (1ml/kcal) Nutritional Problem No current Nutrition Prob Problem N/A Malnutrition Alert Protein-Calorie Malnutrition N/A Is there a minimum of two criteria No selected? Query Text:Check all the applicable criteria. A minimum of two criteria are recommended for diagnosis of either severe or non-severe malnutrition. Intervention/Recommendation Comments 1. Continue with current diet as ordered. 2. Monitor PO intake, wt, labs and skin integrity 3. F/U as low risk in 7 days, 09/23 Expected Outcomes/Goals Expected Outcomes/Goals 1. PO intake to meet at least 75% of nutritional needs. 2. Wt stability, skin to remain intact, labs to approach WNL.
--- NOTE | 2017-09-21 02:21 | Progress Notes ---
DATE: 09/20/2017 Case discussed with staff of the patient, reviewed records. The patient continues to have poor insight continues to be unable to make safe plan for self-care. Continues to be a poor historian, unpredictable, impulsive, easily agitated. She is compliant with the medication with no side effects, no sedation, no nausea. She also is demented, confused. We will continue to work with the patient in group therapy, milieu therapy and adjust the medications as needed. JOB# [id number]
[2017-09-21] MEDS: Multivitamin Tab PO SCH (08:45)
--- NOTE | 2017-09-21 23:59 | Progress Notes ---
DATE: 09/21/2017 SUBJECTIVE: Case discussed with staff of the patient, reviewed records. The patient continues to be confused, demented, unable to make safe plan for self-care. Continues to be unpredictable, impulsive, needing redirection, stays in bed mostly. Her Depakote level came back at 18.1, so I will be increasing her Depakote dose to 250 mg 3 times a day and to help with her behavior. PLAN: We will continue outpatient group therapy, milieu therapy, and adjust the medications as needed. JOB# [id number]
== END 2017-09-21 18:00 | DRG 884 ==
LOC: ER 19:40 → GERO2 23:00
PROVIDERS: ADMIT Psychiatry & Neurology Psychiatry; ATTEND Psychiatry & Neurology Psychiatry
DX: F01.51 Vascular dementia, unspecified severity, with behavioral disturbance (principal); F32.3 Major depressive disorder, single episode, severe with psychotic features; E03.9 Hypothyroidism, unspecified; M19.90 Unspecified osteoarthritis, unspecified site; Y95 Nosocomial condition; Z66 Do not resuscitate; R45.87 Impulsiveness; I10 Essential (primary) hypertension; I25.10 Atherosclerotic heart disease of native coronary artery without angina pectoris; Z95.1 Presence of aortocoronary bypass graft; Z88.5 Allergy status to narcotic agent; Z90.710 Acquired absence of both cervix and uterus; Z90.49 Acquired absence of other specified parts of digestive tract
CPT/HCPCS: 36415-UA; 71045-TC; 80053-TC; 80076-TC; 80164-TC; 83735-TC; 83880-TC; 84439-90; 84443-TC; 84484-TC; 85025-TC; 93005; J2543; Z7610